=== PATIENT | female | born 1970 | race Caucasian/White ===

== ENCOUNTER 2020-02-07 05:25 | Day surgery (SDC) | payer BC, SELFPAY ==
[2020-02-07] VITALS (7 sets, daily range): BP systolic 109–133; BP diastolic 64–82; PULSE 7–77; RESP 18; TEMP 36.6–37; O2SAT 96–100; BMI 50.0
[2020-02-07 05:48] LABS: Internal QC Validated? YES +Cl - CLEAR BKGD; Pregnancy, Urine Negative Negative
[2020-02-07] MEDS: Lactated Ringers 1,000 ML 100 ML IV (06:10)
[2020-02-07] MEDS: Vancomycin IV 1,000 MG/200 ML BAG 200 MG IV (06:12)
--- NOTE | 2020-02-07 07:30 | RAD_ITS ---
STUDY: X-RAY - PELVIS REASON FOR EXAM: Female, 49 years old. inter stim therapy 1 TECHNIQUE: One view of the pelvis was obtained. COMPARISON: None. FINDINGS: There is a non-specific bowel gas pattern. InterStim electrode is seen in the posterior superior aspect of the left hemipelvis. IUD is seen. Normal bilateral iliac wings, sacroiliac joints and visualized sacrum. Normal visualized bilateral superior and inferior pubic rami. Normal pubic symphysis. Normal ischial tuberosities. Normal visualized right femoral head. Normal right acetabulum. Normal right hip joint. Normal visualized left femoral head. Normal left acetabulum. Normal left hip joint. RAD/Pelvis 1 or 2 Views IMPRESSION: Fluoroscopic services provided for InterStim electrode placement with the tip in the superior posterior aspect of the left hemipelvis. Electronically Signed: Michael Franco, at 10:04 EDT , Service support ,
--- NOTE | 2020-02-07 08:50 | PCM.OPRPT ---
Problem List (1) Urinary urgency Status: Acute (2) Urinary incontinence, urge Status: Acute (3) Urinary frequency Status: Acute Report of Operation Date of Procedure: 02/07/20 Pre-Operative Diagnosis: Refractory urinary urgency, frequency and urge incontinence Post-Operative Diagnosis: Same Surgery/Procedure Performed:: InterStim stage I Type of Anesthesia:: Local MAC Specimen's removed: None Estimated Blood Loss (mL): 5 cc Description of Procedure: The patient is a 49-year-old female with a longstanding history of urinary urgency, frequency and urge incontinence refractory to conservative management and medications. She underwent urodynamics and office cystoscopy and now presents for InterStim stage I after informed consent was obtained including discussion of the risks of COVID-19. She was taken to the operating room and placed in a prone position on the operating room table. She was secured to the bed. Esthesia monitored the head, neck, airway, IV access and vital signs throughout the case. Once anesthesia was appropriate ministered the patient was prepped and draped in usual sterile fashion. A C arm was used to outline the patient's anatomy including the S3 foramen specifically on her left side because she sleeps on her right side. The overlying skin and tissue was infiltrated with lidocaine for pain control. The InterStim 5 cm needle was then placed through the S3 foramen as visualized on both AP and lateral view with the C arm. This was then stimulated with good ted response and toe flexion. The guidewire was then passed through the needle and an incision in the skin was made surrounding the guidewire. The dilator was then placed over the wire and appropriately positioned by visualization on the C arm. The lead preloaded with the curve facing her left lateral side was then inserted to an appropriate level is monitored with the C arm. The dilating device was then pulled back leaving the lead exposed for stimulation. All 4 leads received response from the patient lead 0 and 1 with great toe flexion and leads II and III with great ted response. The tines were then released and an area was selected for placement of the pocket. This area was infiltrated and an incision was made. The area was cauterized for hemostatic control. The lead was then tunneled into this site. A site for the lead extension was then selected in a cephalad position from the pocket site. A small incision was made over the tunneling device and the lead extension was tunneled into the pocket site. The lead was dried and inserted into the lead extension and secured using the torque wrench. The incision was closed with 3-0 interrupted Vicryl suture followed by 4-0 subcuticular and then Dermabond. The same was performed on the incision over the lead. At this time the battery was attached to the lead extension and was secured with Tegaderm followed by tape. The patient was awakened and taken to the recovery room in good condition. There were no complications during this procedure. Grafts/Implants Used: [employer] [place] [employer] InterStim lead and lead extension - Complications None - Admit VTE Documentation VTE Present on Admission: No VTE Mechan Device Prophylaxis: None VTE Pharm Prophylaxis ordered?: No Reason prophylaxis not ordered:: Treatment Not Indicated
--- NOTE | 2020-02-07 08:59 | DCINST_ITS ---
Discharge Diet: No Restrictions Discharge Activity: May not drive while taking narcotic pain medications., May Not Shower, - - sponge bath as instructed avoid lifting, bending and pulling as much as possible May resume sexual activity in: 3 weeks Call your doctor if your incision/area has: Continuous Slow Oozing, Sudden Increased Bleeding, Increased Pain/ Swelling, Increased Redness, Foul Smelling Discharge, Swelling at the incision site Call your doctor if you observe: Fever of 101 or Higher, Inability to urinate, Inability to have a bowel movement, Uncontrolled pain Suture Line Care: Avoid Pulling/Pushing Cleanse incision/area with: Keep Dressing Clean & Dry Allergies/Adverse Reactions: Allergies amoxicillin [Amoxicillin] Allergy (Verified 02/07/20 05:59) Rash Medications to take at Discharge Citalopram Hydrobromide [Citalopram HBr] 20 mg PO DAILY 12/14/13 Sertraline HCl 100 mg PO DAILY 01/10/14 Lisinopril [Prinivil] 10 mg PO DAILY 01/30/20 Omeprazole 40 mg PO DAILY 01/30/20 Simvastatin 20 mg PO DAILY 01/30/20 Oxycodone HCl/Acetaminophen [Percocet 5/325] 2 tablet PO Q8H PRN PRN 7 Days #20 tablet 02/07/20 Smz/Tmp Ds [Bactrim Ds] 1 tab PO BID 3 Days #6 tab 02/07/20 The following prescriptions were given: Smz/Tmp Ds [Bactrim Ds] 1 tab PO BID 3 Days #6 tab Transmission Status: Pending to [facility] Oxycodone HCl/Acetaminophen [Percocet 5/325] 2 tablet PO Q8H PRN PRN 7 Days #20 tablet PRN Reason: Pain Transmission Status: Sent to [facility] Primary Care Physician: Tiesha Ring NP-C [Primary Care Provider] - Test Results: Test results from this visit will be discussed in further detail at your follow- up appointment, if applicable. Please Follow Up With: Elaine Cooper MD When: as scheduled Proposed Discharge Date: 02/07/20
== END 2020-02-07 10:25 | disposition home or self-care (01) ==
LOC: SDC 05:28 → AC 05:40
PROVIDERS: Anesthesiology; PCP Nurse Practitioner Family; Referring Provider Urology; Visit Provider Urology
PROC: (CPT 64581; principal; 2020-02-07 07:20)
DX: N39.41 Urge incontinence (principal); N32.81 Overactive bladder; R35.0 Frequency of micturition; R35.1 Nocturia; Z11.59 Encounter for screening for other viral diseases; I10 Essential (primary) hypertension; K21.9 Gastro-esophageal reflux disease without esophagitis; F32.9 Major depressive disorder, single episode, unspecified; F41.9 Anxiety disorder, unspecified; Z79.899 Other long term (current) drug therapy; Z86.718 Personal history of other venous thrombosis and embolism; Z86.711 Personal history of pulmonary embolism
CPT/HCPCS: 00630; 64581; 64590; 72170; 76000; 81025; 87635; 94799; C1778; J7120; U0003

== ENCOUNTER 2020-02-21 06:15 | Day surgery (SDC) | payer BC, SELFPAY ==
[2020-02-07 06:01] VITALS: BMI 50.0
[2020-02-21] VITALS (8 sets, daily range): BP systolic 88–141; BP diastolic 48–84; PULSE 67–77; RESP 16–18; TEMP 36.5–37.2; O2SAT 92–98; BMI 49.8
[2020-02-21 06:36] LABS: Internal QC Validated? YES +Cl - CLEAR BKGD; Pregnancy, Urine Negative Negative
[2020-02-21] MEDS: Lactated Ringers 1,000 ML 100 ML IV (07:05)
[2020-02-21] MEDS: Vancomycin IV 1,000 MG/200 ML BAG 200 MG IV (07:15)
--- NOTE | 2020-02-21 08:30 | DCINST_ITS ---
Discharge Diet: No Restrictions Discharge Activity: Return to Normal Activity, May not drive while taking narcotic pain medications., May Shower Call your doctor if your incision/area has: Continuous Slow Oozing, Sudden Increased Bleeding, Increased Pain/ Swelling, Increased Redness, Foul Smelling Discharge, Swelling at the incision site Call your doctor if you observe: Fever of 101 or Higher, Inability to urinate, Inability to have a bowel movement, Uncontrolled pain Allergies/Adverse Reactions: Allergies amoxicillin [Amoxicillin] Allergy (Verified 02/08/20 13:34) Rash Medications to take at Discharge Citalopram Hydrobromide [Citalopram HBr] 20 mg PO DAILY 12/14/13 Sertraline HCl 100 mg PO DAILY 01/10/14 Lisinopril [Prinivil] 10 mg PO DAILY 01/30/20 Omeprazole 40 mg PO DAILY 01/30/20 Simvastatin 20 mg PO DAILY 01/30/20 Oxycodone HCl/Acetaminophen [Percocet 5/325] 2 tablet PO Q8H PRN PRN 7 Days #20 tablet 02/21/20 Smz/Tmp Ds [Bactrim Ds] 1 tab PO BID 3 Days #6 tab 02/21/20 The following prescriptions were given: Smz/Tmp Ds [Bactrim Ds] 1 tab PO BID 3 Days #6 tab Transmission Status: Pending to [facility] Oxycodone HCl/Acetaminophen [Percocet 5/325] 2 tablet PO Q8H PRN PRN 7 Days #20 tablet PRN Reason: Pain Transmission Status: Sent to [facility] Primary Care Physician: Tiesha Ring NP-C [Primary Care Provider] - Test Results: Test results from this visit will be discussed in further detail at your follow- up appointment, if applicable. Please Follow Up With: Elaine Cooper MD When: call office for appt to be seen in 3-4 weeks Proposed Discharge Date: 02/21/20
--- NOTE | 2020-02-21 08:32 | PCM.OPRPT ---
Problem List (1) Urinary urgency Status: Acute (2) Urinary incontinence, urge Status: Acute (3) Urinary frequency Status: Acute Report of Operation Date of Procedure: 02/21/20 Pre-Operative Diagnosis: refractory urgency and frequency, urge incontinence Post-Operative Diagnosis: same Surgery/Procedure Performed:: Interstim Stage 2 Type of Anesthesia:: MAC Specimen's removed: none Estimated Blood Loss (mL): 5cc Description of Procedure: The patient is a 49-year-old female here for insertion of her InterStim IPG if she has successfully passed stage I trial. Informed consent was obtained including discussion of the COVID-19 virus and complications possible. Patient was taken to the operating room and placed in the prone position on the operating room table. Dependent areas of her body were appropriately padded and she was secured to the table. Anesthesia monitored the head, neck, airway, IV access and vital signs throughout the case. Once anesthesia was appropriately administered the patient was prepped and draped in usual sterile fashion. The existing pocket incision site was infiltrated with lidocaine. It was opened using a knife and care was taken to avoid injury to the lead. The lead insertion site to the extension wire was identified and the lead was removed using the torque wrench. The boot was removed with heavy scissors and the lead extension was pulled from underneath the drapes. The pocket site was enlarged using sharp and blunt dissection technique. Hemostasis was obtained. The lead was dried and inserted into the IPG and secured using the torque wrench. The IPG was then placed into the pocket site in appropriate position and was tested for impedances. It was found to be appropriate. The incision was closed using 3-0 interrupted Vicryl followed by 4-0 Vicryl subcuticular suturing and then Dermabond. Patient was then awakened and taken to the recovery room in good condition. There were no complications during this procedure. Grafts/Implants Used: Interstim IPG - Complications none - Admit VTE Documentation VTE Present on Admission: Yes VTE Mechan Device Prophylaxis: SCD's VTE Pharm Prophylaxis ordered?: No Reason prophylaxis not ordered:: Treatment Not Indicated
[2020-02-21] MEDS: Acetaminophen 325 MG Tablet 650 MG PO (10:20)
[2020-02-21] MEDS: oxyCODONE 5 MG Tablet 10 MG PO (10:20)
== END 2020-02-21 11:06 | disposition home or self-care (01) ==
LOC: SDC 06:16 → AC 06:16
PROVIDERS: Anesthesiology; PCP Nurse Practitioner Family; Referring Provider Urology; Visit Provider Urology
PROC: (CPT 64590; principal; 2020-02-21 08:10)
DX: N39.41 Urge incontinence (principal); R35.0 Frequency of micturition; R35.1 Nocturia; Z11.59 Encounter for screening for other viral diseases; I10 Essential (primary) hypertension; E78.00 Pure hypercholesterolemia, unspecified; K21.9 Gastro-esophageal reflux disease without esophagitis; F32.9 Major depressive disorder, single episode, unspecified; F41.9 Anxiety disorder, unspecified; Z79.899 Other long term (current) drug therapy; Z86.711 Personal history of pulmonary embolism
CPT/HCPCS: 00300; 64590; 81025; 87635; 94799; J7120; C1767; J2405; U0003

== ENCOUNTER 2023-11-15 11:38 | Emergency (ER) | payer BC, SELFPAY ==
[2023-11-15 11:39] VITALS: BP 175/76; PULSE 91; RESP 16; TEMP 36.8; O2SAT 99; BMI 47.6
[2023-11-15 15:39] VITALS: BP 213/79; PULSE 99; RESP 25; O2SAT 100
--- NOTE | 2023-11-15 18:22 | NURSING ---
pt refusing to do froi and aware that cannot go back to file if leaves today and decides later.
--- NOTE | 2023-11-15 18:33 | ED.VIS.BACK ---
HPI History of Present Illness Chief Complaint: Back Informant: patient Onset/Context/Timing Onset: Days Context: Gradual Onset Quality: Sharp Location: Lumbar Current Severity: Moderate Maximum Severity: Moderate Worsened by: improves with Movement Relieved by: Nothing Associated Symptoms Associated Symptoms: Negative for Numbness, Tingling, Radiation to Right Leg, Radiation to Left Leg, Fever, Abdominal Pain, Dysuria, Unable to Ambulate, Unable to Transfer, Urinary Retention, Urinary Incontinence, Constipation or Fecal Incontinence Narrative Narrative: 53-year-old female having low back pain since last . Denies any fall injury or trauma. She does do a lot of lifting at work but says she has no specific injury at . She denies any bowel or bladder incontinence. No prior back history of back surgery. No fever. Worse with movement. No weakness or numbness in her lower extremities. Prior similar symptoms: No Recent Illness/Hospitalization: No [facility] Medical History delivery delivered Overactive bladder Hypertension Diabetes Home Medications ?Medication ?Instructions ?Recorded ?Last Taken ?Type citalopram 20 mg tablet 20 mg PO DAILY 12/14/13 02/20/20 History sertraline 100 mg tablet 100 mg PO DAILY 01/10/14 02/20/20 History lisinopril 10 mg tablet 10 mg PO DAILY bp 01/30/20 02/20/20 History omeprazole 40 mg capsule,delayed 40 mg PO DAILY gerd 01/30/20 02/20/20 History release simvastatin 20 mg tablet 20 mg PO DAILY 01/30/20 02/20/20 History metaxalone 800 mg tablet 800 mg PO TID 7 days #21 tabs 11/15/23 Unknown Rx Allergy/AdvReac Type Severity Reaction Status Date / Time amoxicillin (Amoxicillin) Allergy Rash Verified 11/15/23 11:41 Surgical History History of cholecystectomy Social History Smoking Status: Never smoker ROS ROS ED ROS Narrative Denies recent illness. Back pain. Review of Systems ROS Unobtainable: Denies due to encephalopathy Constitutional Constitutional ED: Denies chills or fever(s) Eyes Eyes: Denies blurry vision ENT ENT ED: Denies ear pain Cardiovascular Cardiovascular: Denies chest pain Respiratory/Chest Respiratory/Chest: Denies dyspnea Gastrointestinal Gastrointestinal: Denies abdominal pain, constipation, diarrhea, melena, nausea or vomiting Genitourinary Genitourinary ED: Denies dysuria or hematuria Musculoskeletal Musculoskeletal: Reports back pain; Denies arthralgias, myalgias or neck pain Integumentary Denies abscess or Abrasions Neurologic Neurologic: Denies headache(s) Psychiatric Psychiatric: Denies anxiety Endocrine Endocrinology: Denies cold intolerance or heat intolerance Hematologic/Lymphatic Hematologic/Lymphatic: Denies easy bleeding or easy bruising Allergic/Immunologic Allergic/Immunologic ED: Denies mouth swelling or tongue swelling EXAM Physical Exam Narrative Exam Narrative: Well-appearing 53-year-old female. Vital signs stable afebrile. H EENT exam unremarkable. Neck nontender. Lungs clear to auscultation bilateral. Heart regular rhythm no murmur. Chest wall nontender. Abdomen soft nontender. No peritoneal signs. No pulsatile mass. Moving all 4 extremities. Neurovascular intact. 5/5 hydrometallurgical engineer strength. Dorsi plantarflexion intact. No cauda equina. No saddle anesthesia. Normal medial thigh sensation. Negative straight leg raise bilaterally. Back exam tenderness right lower back. Lumbar consistent with myofascial spasm. No spine tenderness. No ecchymosis or bruising. No signs of trauma. No redness or warmth. Neurologic exam normal. No loss of sensation. Normal 5 out of 5 strength in both upper and lower extremities. Again no cauda equina. Const Vital Signs: 11/15/23 11:39 11/15/23 15:39 Temperature 98.3 F Temperature Source Temporal Pulse Rate 91 99 Respiratory Rate 16 25 H Blood Pressure 175/76 H 213/79 H Blood Pressure Mean 109 123 Pulse Ox 99 100 Oxygen Delivery Method Room Air Room Air Positive well nourished and well developed; Negative for cachectic, contractures or unkempt General Appearance ED: well developed and NAD; Negative for unkempt, cachectic, contractures or pallor Nutritional Appearance: Negative for cachectic HEENT Reports moist mucous membranes Negative for trauma or tenderness Eyes PERRL and EOMs intact bilaterally General Eye ED: Negative for pale conjunctiva or scleral icterus Neck no lymphadenopathy, supple and no JVD General: Negative for tenderness Thyroid: Negative for other Resp normal respiratory effort and clear to auscultation bilaterally Effort and Inspection: Negative for pain with movement Auscultation: Negative for rales, rhonchi, wheezes or diminished lung sounds Cardio regular rate, regular rhythm, S1 normal heart sound, S2 normal heart sound and no murmurs Palpation: Negative for palpable S3 Rate: Negative for bradycardia or tachycardic Rhythm: Negative for abnormal rhythm Bruits: Negative for other GI normal to inspection, nondistended, normoactive bowel sounds, soft to palpation, non-tender, non-distended and no masses Inspection: Negative for abdominal distention Palpation: Negative for tender, guarding or rebound tenderness present Back/Spine no thoracic nor lumbar tenderness; Negative for normal to inspection Back/Spine Narrative: Right paralumbar soft tissue tenderness consistent with myofascial strain and spasm. No redness. No warmth. No bruising. Spine nontender. General Back: Negative for CVA tenderness Cervical Spine: Negative for cervical spine tenderness Extremity normal to inspection and no clubbing, cyanosis or edema General Extremety ED: Negative for edema or tenderness General Extremity: Negative for edema Neuro oriented x3 and no sensory deficits noted Sensorium / Orientation: alert; Negative for confused, lethargic or stuporous Motor Exam: strength 5/5 throughout Psych mental status grossly normal Appearance: Negative for unkempt Attitude: No agitated Mood & Affect: Negative for depressed, sad or tearful Skin no rashes or lesions noted and no wounds General Skin Exam: Negative for jaundice or pallor Lesions: No lesion noted Rashes: No rashes noted Trauma: Negative for abrasion or puncture Wounds: Negative for wounds noted MDM MDM MDM Narrative Medical decision making narrative: 53-year-old female with back strain and spasm. Treated with Skelaxin 800 and ibuprofen. Written for prescription for Skelaxin 3 times daily. Motrin for pain and inflammation. Hot shower warm bath. She had no trauma. She needs no imaging. Her lower extremities are neurovascularly intact. She did not want to make this Worker's Comp. She did not have a specific injury at work. Discharge Plan Triage Chief Complaint: Back ED Provider: Supa Rico Dx/Rx/DC Orders Clinical Impression: Back strain, Back muscle spasm Instructions: ED Back Spasm, No Trauma, ED Back Sprain/Strain Prescriptions: New metaxalone 800 mg tablet 800 mg PO TID 7 Days Qty: 21 0RF No Action citalopram 20 MG tablet 20 mg PO DAILY Patient Comments: DEPRESSION sertraline 100 MG tablet 100 mg PO DAILY Patient Comments: omeprazole 40 MG capsule,delayed release(DR/EC) 40 mg PO DAILY simvastatin 20 MG tablet 20 mg PO DAILY lisinopril 10 MG tablet 10 mg PO DAILY Primary Care Provider: Tiesha Ring NP Referrals: Tiesha Ring NP, [facility] [Primary Care Provider] - 1 Week if not improving Activity Restrictions/Additional Instructions: Hot shower, warm bath and massage to help relax muscles in your back. Also hot tub. Motrin for pain and swelling. Tylenol for pain. The muscle relaxant Skelaxin 1 pill 3 times a day for 1 week. It will take several days to start making you feel better. Off work tomorrow. Print Language: [place] Disposition Disposition: Home, Self Care
[2023-11-15] MEDS: Metaxalone 800 MG Tablet PO (18:48)
[2023-11-15] MEDS: Ibuprofen 400 MG Tablet 800 MG PO (18:48)
[2023-11-15 18:55] VITALS: BP 168/79; PULSE 98; RESP 16; TEMP 36.9; O2SAT 97
== END 2023-11-15 18:57 | disposition home or self-care (01) ==
LOC: ED 18:54
PROVIDERS: Emergency Provider Emergency Medicine; PCP Nurse Practitioner Family; Visit Provider Emergency Medicine
DX: S39.012A Strain of muscle, fascia and tendon of lower back, initial encounter (principal); E11.9 Type 2 diabetes mellitus without complications; M62.830 Muscle spasm of back; I10 Essential (primary) hypertension; X50.0XXA Overexertion from strenuous movement or load, initial encounter; Y99.0 Civilian activity done for income or pay
CPT/HCPCS: 99283

== ENCOUNTER → 2023-11-23 | Outpatient (CLI) | payer OTHER, SELFPAY ==
--- NOTE | 2023-11-23 14:45 | RAD_ITS ---
STUDY: X-RAY - THORACIC SPINE REASON FOR EXAM: Female, 53 years old. Mid back pain TECHNIQUE: 2 view(s) of the thoracic spine were obtained. COMPARISON: None. FINDINGS: Normal kyphosis of the thoracic spine. There is no substantial scoliosis. There is multilevel endplate spondylosis of the thoracic vertebrae.. There is multilevel disc space narrowing of the thoracic spine. The soft tissue structures are unremarkable. RAD/Thoracic Spine 3 Views IMPRESSION: Degenerative changes, no acute findings Electronically Signed: Js Wiseman MD at 15:02 EDT ,
--- NOTE | 2023-11-23 14:45 | RAD_ITS ---
STUDY: X-RAY - LUMBAR SPINE REASON FOR EXAM: Female, 53 years old. pain TECHNIQUE: 3 view(s) of the lumbar spine were obtained. COMPARISON: None FINDINGS: Normal lumbar lordosis. There is a dextroscoliosis of the lumbar spine. There is a normal alignment of the vertebrae in the lateral view. Normal vertebral bodies and endplates. There is multi-level degenerative disc disease with multi-level disc space narrowing. There is no demonstrated fracture. The soft tissue structures are unremarkable. RAD/Lumbar Spine 2 or 3 Views IMPRESSION: Multilevel degenerative changes with a dextroscoliosis. No demonstrated fracture or suspicious osseous lesion Electronically Signed: Js Wiseman MD at 15:03 EDT ,
== END | disposition home or self-care (01) ==
LOC: MTRAD 14:45
PROVIDERS: PCP Nurse Practitioner Family; Referring Provider Physician Assistant; Visit Provider Physician Assistant
DX: R52 Pain, unspecified (principal)
CPT/HCPCS: 72072; 72100

== ENCOUNTER → 2024-01-12 | Outpatient (CLI) | payer OTHER, SELFPAY ==
--- NOTE | 2024-01-12 13:25 | CT_ITS ---
STUDY: CT LUMBAR SPINE WITHOUT CONTRAST REASON FOR EXAM: Female, 53 years old. lbp w/ R thigh parestheisas -- bladder stimulator therefore not MRI eligible RADIATION DOSAGE (If Supplied By Facility): CTDIvol = ( 33.23 ) mGy, DLP = ( 1297.72 ) mGycm TECHNIQUE: The patient was scanned in a multi detector CT scanner. High resolution transaxial imaging was performed. Images were obtained from T12 to S1. Sagittal and coronal images were reconstructed. Individualized dose optimization techniques were used for this CT. COMPARISON: X-ray thoracic spine 11/23/2023 FINDINGS: Normal lumbar lordosis. Mild dextroscoliosis centered at L2. 6 lumbar type vertebral bodies. Normal vertebrae of the lumbar spine. L1-2: Mild bilateral disc osteophyte complex produces mild spinal stenosis. No neural foraminal stenosis. L2-3: Moderate broad disc osteophyte complex asymmetric to the left produces moderate spinal stenosis and moderate left neural foraminal stenosis. No right neural foraminal stenosis. L3-4: Mild bilateral facet hypertrophy and ligament flavum hypertrophy. No disc protrusion, spinal stenosis, or neural foraminal stenosis. L4-5: Mild bilateral facet hypertrophy and ligament flavum hypertrophy. Mild broad disc protrusion asymmetric left produces a mild spinal stenosis and mild left neural foraminal stenosis. L5-L6: Mild right facet hypertrophy and moderate left facet hypertrophy. Mild broad disc protrusion produces mild spinal stenosis and mild bilateral neural foraminal stenosis. L6-S1: Moderate bilateral facet hypertrophy. No disc protrusion, spinal stenosis, or neural foraminal stenosis. Normal visualized paraspinous soft tissue structures. Sacral stimulator. CT/Spine Lumbar without Contrast IMPRESSION: 1. 6 lumbar type vertebral bodies. 2. Mild dextroscoliosis and degenerative disc disease as described above. Electronically Signed: Preston Castro MD at 10:52 EDT ,
== END | disposition home or self-care (01) ==
PROVIDERS: PCP Nurse Practitioner Family; Referring Provider Physician Assistant; Visit Provider Physician Assistant
DX: S39.012A Strain of muscle, fascia and tendon of lower back, initial encounter (principal); M54.16 Radiculopathy, lumbar region; X58.XXXA Exposure to other specified factors, initial encounter
CPT/HCPCS: 72131

== ENCOUNTER → 2024-02-25 | Outpatient (CLI) | payer OTHER, SELFPAY ==
--- NOTE | 2024-02-25 12:17 | MRI_ITS ---
EXAM: MR LUMBAR SPINE WITHOUT INTRAVENOUS CONTRAST CLINICAL INDICATION: pain -- [facility] approved-valid until 03/16/24 TECHNIQUE: Multiplanar and multisequence MR images of the lumbar spine without intravenous contrast. COMPARISON: CT lumbar spine, 01/12/2024 and lumbar spine radiographs, 02/16/2024. FINDINGS: VERTEBRAE: For the purposes of this examination, hypoplastic ribs at T12 and 5 nonrib-bearing lumbar vertebrae are otherwise identified. No suspicious marrow space signal abnormality is identified. There is a hemangioma within the L4 vertebra. There are multiple Schmorl''s nodes. There is a hemangioma in the T12 vertebra. Vertebral body heights are preserved. Normal alignment. No spondylolisthesis. There is preservation of the normal lumbar lordosis. SPINAL CORD AND CONUS: No significant abnormality. Normal position and signal intensity of the conus medullaris. No obvious nerve root impingement. SOFT TISSUES: No significant abnormality. DISCS/SPINAL CANAL/NEURAL FORAMINA: T11-T12: Disc herniation superimposed upon a disc bulge only seen on sagittal views with at least mild spinal canal stenosis. T12-L1: Disc bulge and moderate bilateral facet arthrosis. Mild spinal canal stenosis and bilateral neural foraminal narrowing. L1-L2: Disc bulge and superimposed right central disc herniation. Mild to moderate spinal canal stenosis and bilateral neural foraminal narrowing. L2-L3: Moderate bilateral facet arthrosis. No disc herniation, spinal canal stenosis, or neural foraminal narrowing. L3-L4: Disc bulge and small central disc herniation. Moderate bilateral facet arthrosis. Mild spinal canal stenosis and bilateral neural foraminal narrowing. L4-L5: Disc bulge with superimposed right central disc herniation and severe bilateral facet arthrosis. Mild to moderate bilateral neural foraminal narrowing and mild spinal canal stenosis. L5-S1: Moderate to severe bilateral facet arthrosis. Disc bulge with small right central to subarticular disc herniation. Mild spinal canal stenosis and mild right greater than left neural foraminal narrowing. MRI/Spine Lumbar (Routine) IMPRESSION: Multilevel degenerative changes in the lumbar spine resulting in [id number] multilevel spinal canal and neural foraminal stenosis. Degenerative changes also visualized in the lower thoracic spine. No definite nerve root impingement. Electronically Signed: Chacho Batres DO at 21:48 EDT ,
== END | disposition home or self-care (01) ==
LOC: MRI 11:46
PROVIDERS: PCP Nurse Practitioner Family; Referring Provider Orthopaedic Surgery Orthopaedic Surgery of the Spine; Visit Provider Orthopaedic Surgery Orthopaedic Surgery of the Spine
DX: S39.012A Strain of muscle, fascia and tendon of lower back, initial encounter (principal); M41.56 Other secondary scoliosis, lumbar region; M54.16 Radiculopathy, lumbar region; X58.XXXA Exposure to other specified factors, initial encounter
CPT/HCPCS: 72148

== ENCOUNTER → 2025-02-12 | Outpatient (CLI) | payer BC, SELFPAY ==
--- NOTE | 2025-02-12 16:44 | MRI_ITS ---
PROCEDURE: SPINE LUMBAR (ROUTINE) 02/12/2025 REASON FOR EXAM: PAIN, RADICULOPATHY, CHANGING SYMPTOMS TECHNIQUE: SPINE LUMBAR (ROUTINE) COMPARISON: December 27, 2024, February 25, 2024, February 16, 2024 FINDINGS: Vertebrae: Partial sacralization of L5. The most inferior lumbar type vertebral body will be considered L5. The images are labeled. Vertebral body height is preserved. No fracture. Alignment: Normal lumbar lordosis. Curvature lumbar spine to the right. No spondylolisthesis. Conus Medullaris: Terminates at L1/2. Signal is normal. L1-2: Disc desiccation. Moderate, diffuse bulge. Mild thickening of ligamentum flavum. Mild facet hypertrophy. No central stenosis or exit foraminal narrowing. L2-3: Disc desiccation. Mild, diffuse disc bulge. Hhax-we-ignggtxx thickening of ligamentum flavum. Moderate facet hypertrophy. No central stenosis or exit foraminal narrowing. L3-4: Disc desiccation. Mild, diffuse disc bulge. Pcsi-dt-[id number] thickening of ligamentum flavum. Moderate facet hypertrophy. No central stenosis or exit foraminal narrowing. L4-5: Large bridging osteophyte left laterally at L4/5 best seen on plain film. Disc desiccation. Mild, diffuse disc bulge. Yyfy-so-lumkcdqb thickening of ligamentum flavum. Mild right facet hypertrophy. Moderate facet hypertrophy on the left. No central stenosis. There is possibly contact of the hypertrophic facet with the posterior superior margin of the exiting L4 nerve root on the left. Correlate with left radiculopathy. L5-S1: Disc desiccation. Transitional lumbosacral junction. Minimal facet hypertrophy. 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 Reading Location: [id number]
--- OUTSIDE RECORDS SUMMARY | 2025-02-12 21:21 | XMS RPT_ITS | CCD ---
Author Organization [facility] Care Team Providers Care Mobile Equipment Servicer Name Role Phone JENNIE SIMPSON Unavailable Unavailable JENNIE SIMPSON Unavailable Unavailable DOC, MISC Unavailable Unavailable Cathi Ringa K Primary Care Provider [phone] Jhonathan Elisa K Primary Care Provider Jhonathan, Elisa K Primary Care Provider Jhonathan CONSTRUCTION PERSON, Elisa K Primary Care Provider Jhonathan CONSTRUCTION PERSON, Elisa K Primary Care Provider MANNY LYN Referring Unavailable JHONATHAN, ELISA K Primary Care Unavailable Jhonathan TALENT ACQUISITION OPERATIONS MANAGER-C, Elisa Primary Care Provider [phone] Jhonathan TALENT ACQUISITION OPERATIONS MANAGER-C, Elisa Referring Provider Marci Alanis Attending Provider [phone] Aiden K[place]STON, Dr. Beavers Attending Provider TOMER ACEVEDO DO Admitting Unavailable TOMER ACEVEDO DO Primary Care Unavailable TOMER ACEVEDO DO Attending Unavailable JHONATHAN, ELISA Consulting Unavailable JHONATHAN, ELISA Referring Unavailable PROVIDER, UNKNOWN Consulting Unavailable JHONATHAN, ELISA Primary Care Unavailable JHONATHAN, ELISA Consulting Unavailable JHONATHAN, ELISA Attending Unavailable JHONATHAN, ELISA Admitting Unavailable PROVIDER, UNKNOWN Consulting Unavailable JHONATHAN, ELISA Admitting Unavailable JHONATHAN, ELISA Primary Care Unavailable JHONATHAN, ELISA Consulting Unavailable JHONATHAN, ELISA Attending Unavailable PROVIDER, UNKNOWN Consulting Unavailable MIRELA REED DO Admitting Unavailable MIRELA REED DO Primary Care Unavailable MIRELA REED DO Attending Unavailable JHONATHAN, ELISA Consulting Unavailable JHONATHAN, ELISA Referring Unavailable PROVIDER, UNKNOWN Consulting Unavailable Marci Jenkins Attending Unavailable Marci Jenkins Referring Unavailable Jhonathan TALENT ACQUISITION OPERATIONS MANAGER, Elisa Primary Care Unavailable Marci Jenkins Attending Unavailable Jhonathan TALENT ACQUISITION OPERATIONS MANAGER, Elisa Referring Unavailable Jhonathan TALENT ACQUISITION OPERATIONS MANAGER, Elisa Primary Care Unavailable Nimesh Wolfe Attending Unavailable Jhonathan TALENT ACQUISITION OPERATIONS MANAGER, Elisa Primary Care Unavailable Jhonathan TALENT ACQUISITION OPERATIONS MANAGER, Elisa Primary Care Unavailable Jhonathan TALENT ACQUISITION OPERATIONS MANAGER, Elisa Referring Unavailable Nathanael Marrufo Attending Unavailable Nimesh Wolfe Attending Unavailable Jhonathan TALENT ACQUISITION OPERATIONS MANAGER, Elisa Primary Care Unavailable Jhonathan TALENT ACQUISITION OPERATIONS MANAGER, Elisa Referring Unavailable Jhonathan TALENT ACQUISITION OPERATIONS MANAGER, Elisa Primary Care Unavailable Nathanael Marrufo Attending Unavailable Ck Jj Attending Unavailable Jhonathan TALENT ACQUISITION OPERATIONS MANAGER, Elisa Referring Unavailable Jhonathan TALENT ACQUISITION OPERATIONS MANAGER, Elisa Primary Care Unavailable Ck Jj Attending Unavailable Jhonathan TALENT ACQUISITION OPERATIONS MANAGER, Elisa Referring Unavailable Jhonathan TALENT ACQUISITION OPERATIONS MANAGER, Elisa Primary Care Unavailable Yaron, Nathanael Referring Unavailable Jhonathan TALENT ACQUISITION OPERATIONS MANAGER, Elisa Primary Care Unavailable Nathanael Marrufo Attending Unavailable Allergies Allergy Classification Reported Allergen(s) Allergy Type Date of Onset Reaction(s) Facility (13 sources) Amoxicillin; Translations: [AMOXICILLIN] Drug Allergy 06-08-2005 [facility] Work Phone: (11 sources) Cephalexin; Translations: [CEPHALEXIN] Drug Allergy 09-24-2013 [facility] (1 source) Amoxicillin Drug Allergy [facility] (1 source) Ciprofloxacin Drug Allergy [facility] (1 source) Penicillin Drug Allergy [facility] (1 source) Amoxicillin Drug Allergy 12-27-2024 [facility] Medications Current Medications Medication Drug Class(es) Dates Sig (Normalized) Sig (Original) aspirin 81 mg delayed release oral tablet (2 sources) Platelet Aggregation Inhibitor, Nonsteroidal Anti-inflammatory Drug Start: 02-16-2024 take 1 tablet by mouth once daily Aspirin (Adult Aspirin Regimen) 81 mg tablet,delayed release (DR/EC) Active 81 mg PO DAILY February 16, 2024 12:00am clonazePAM 0.5 mg oral tablet (10 sources) Benzodiazepine take 1 tablet by mouth every twelve hours as needed clonazePAM (KLONOPIN) 0.5 mg tablet Take 0.5 mg by mouth twice daily as needed. Active Comment on above: Take 0.5 mg by mouth twice daily as needed. cyclobenzaprine hydrochloride 10 mg oral tablet (6 sources) Muscle Relaxant Start: 12-27-2024 take 1 tablet by mouth three times daily as needed for muscle spasms Cyclobenzaprine 10 mg tablet Active 10 mg PO THREE TIMES A DAY as needed for muscle spasm December 27, 2024 12:00am Start: 11-30-2023 End: 02-16-2024 take 1 tablet by mouth once daily as needed Cyclobenzaprine 10 mg tablet Discontinued 10 mg PO THREE TIMES A DAY as needed for muscle spasm December 20, 2023 4:04pm February 16, 2024 9:23am take only AFTER work hours as needed on work days End: 01-08-2022 take 1 tablet by mouth every eight hours as needed cyclobenzaprine (FLEXERIL) 5 mg tablet Take 5 mg by mouth three times daily as needed. 0 01/08/2022 Discontinued Comment on above: Take 5 mg by mouth t hree times daily as needed. levonorgestrel 0.576949 mg/hr intrauterine system (12 sources) Progestin, Progestin-containing Intrauterine Device Start: 03-24-20 End: 01-09-20 levonorgestrel (MIRENA) 20 mcg/24 hours (7 yrs) 52 mg IUD Indications: Encounter for IUD insertion 1 Each by INTRAUTERINE route as directed. 1 Each 05/27/2020 Active Comment on above: 1 Each by INTRAUTERI NE route as directed. 1 Each by INTRAUTERI NE route continuous. lisinopril 10 mg oral tablet (12 sources) Angiotensin Converting Enzyme Inhibitor Start: 01-30-20 take 1 tablet by mouth once daily Lisinopril 10 MG tablet Active 10 mg PO DAILY January 30, 2020 12:00am take 1 tablet by mouth once chin y lisinopril 20 mg tablet Take 20 mg by mouth once daily. Active Comment on above: Take 20 mg by mouth once daily. perflutren lipid microspheres 1.3 mL in NaCl (PF) 0.9% 10 mL injection (DEFINITY) (6 sources) Start: 04-14-2021 End: 07-14-2022 perflutren lipid microspheres 1.3 mL in NaCl (PF) 0.9% 10 mL injection (DEFINITY) 125 ml sodium chloride 9 mg/ml prefilled syringe (6 sources) Start: 04-14-2021 End: 07-14-2022 sodium chloride 0.9 % (flush) 10 mL (BD POSIFLUSH) Completed/Discontinued Medications Medication Drug Class(es) Dates Sig (Normalized) Sig (Original) acetaminophen 325 mg / oxyCODONE hydrochloride 5 mg oral tablet (2 sources) Opioid Agonist Start: 02-21-2020 End: 02-28-2020 Oxycodone-Acetami nophen 1 TABLET tablet Discontinued 2 {tbl} PO EVERY 8 HOURS NEEDED as needed for Pain 20 01February 21, 2020 February 27, 2020 12:00am February 28, 2020 12:02am busPIRone hydrochloride 30 mg oral tablet (1 source) End: 01-08-2022 take 1 tablet by mouth twice daily busPIRone HCl 30 mg tablet Take 30 mg by mouth twice daily. 0 01/08/2022 Discontinued Comment on above: Take 30 mg by mouth twice daily. Calcium Carbonate / vitamin D3 (1 source) End: 01-08-2022 CALCIUM CARBONATE/VITAMIN D3 (VITAMIN D-3 ORAL) Take by mouth. 0 01/08/2022 Discontinued Comment on above: Take by mouth. citalopram 20 mg oral tablet (2 sources) Serotonin Reuptake Inhibitor Start: 12-14-2013 End: 11-23-2023 take 1 tablet by mouth once daily Citalopram 20 MG tablet Discontinued 20 mg PO DAILY December 14, 2013 12:00am November 23, 2023 2:56pm metaxalone 800 mg oral tablet (2 sources) Start: 11-15-2023 End: 11-23-2023 take 1 tablet by mouth three times daily Metaxalone 800 mg tablet Discontinued 800 mg PO THREE TIMES A DAY 21 01November 15, 2023 12:00am November 23, 2023 2:56pm 24 hr metFORMIN hydrochloride 500 mg extended release oral tablet (2 sources) Biguanide Start: 11-23-2023 End: 02-16-2024 take 1 tablet by mouth once daily Metformin 500 mg tablet extended release 24 hr Discontinued 500 mg PO daily November 23, 2023 12:00am February 16, 2024 9:24am omeprazole 40 mg delayed release oral capsule (2 sources) Proton Pump Inhibitor Start: 01-30-2020 End: 11-23-2023 take 1 capsule by mouth once daily Omeprazole 40 MG capsule,delayed release(DR/EC) Discontinued 40 mg PO DAILY January 30, 2020 12:00am November 23, 2023 2:56pm 24 hr oxybutynin chloride 10 mg extended release oral tablet (2 sources) Cholinergic Muscarinic Antagonist Start: 11-23-2023 End: 02-16-2024 take 1 tablet by mouth once daily Oxybutynin Chloride 10 mg tablet extended release 24hr Discontinued 10 mg PO daily November 23, 2023 12:00am February 16, 2024 9:24am predniSONE 10 mg oral tablet (2 sources) Start: 11-23-2023 End: 12-20-2023 take 4 tablets by mouth once daily, then take 3 tablets by mouth once daily, then take 2 tablets by mouth once daily, then take 1 tablet by mouth once daily Prednisone 10 mg tablet Discontinued 10 mg PO DAILY November 23, 2023 12:00am December 20, 2023 3:50pm 4 tablets daily x3 days, then 3 tablets daily x3 days, then 2 tablets daily x3 days, then 1 tablet daily x3 days sertraline 100 mg oral tablet (12 sources) Serotonin Reuptake Inhibitor Start: 01-10-2014 End: 11-23-2023 take 1 tablet by mouth once daily Sertraline 100 MG tablet Discontinued 100 mg PO DAILY January 10, 2014 12:00am November 23, 2023 2:56pm Comment on above: Take 100 mg by mouth once daily. simvastatin 20 mg oral tablet (3 sources) HMG-CoA Reductase Inhibitor Start: 01-30-2020 End: 11-23-2023 take 1 tablet by mouth once daily Simvastatin 20 MG tablet Discontinued 20 mg PO DAILY January 30, 2020 12:00am November 23, 2023 2:56pm Comment on above: Take 20 mg by mouth daily at bedtime. sulfamethoxazole 800 mg / trimethoprim 160 mg oral tablet (4 sources) Dihydrofolate Reductase Inhibitor Antibacterial, Sulfonamide Antimicrobial Start: 02-21-2020 End: 02-24-2020 Sulfamethoxazole- Trimethoprim 1 TABLET tablet Discontinued 1 {tbl} PO TWICE A DAY 6 3 February 21, 2020 12:00am February 23, 2020 12:00am February 24, 2020 12:02am Start: 02-07-2020 End: 02-10-2020 Sulfamethoxazole-Trimethopri m 1 TABLET tablet Discontinued 1 {tbl} PO TWICE A DAY 6 3 February 07, 2020 12:00am February 09, 2020 12:00am February 10, 2020 12:03am 24 hr venlafaxine 37.5 mg extended release oral capsule (1 source) Serotonin and Norepinephrine Reuptake Inhibitor Start: 03-19-2020 End: 01-08-2022 take 1 capsule by mouth once daily venlafaxine ER (EFFEXOR XR) 37.5 mg 24 hr capsule Take 37.5 mg by mouth once daily. 0 03/19/2020 01/08/2022 Discontinued Comment on above: Take 37.5 mg by mout h once daily. Problems Active Problems Problem Classification Problem Date Documented Date Episodic/Chronic Contraceptive and procreative management (5 sources) Patient encounter status; Translations: [Encounter for insertion of intrauterine contraceptive device] Episodic Disorders of lipid metabolism (1 source) Hyperlipidemia, unspecified; Translations: [Hyperlipidemia, unspecified] Onset: 02-06-2025 Chronic Esophageal disorders (2 sources) Gastroesophageal reflux disease; Translations: [Gastro-esophageal reflux disease without esophagitis] 12-15-2013 Chronic Essential hypertension (1 source) Essential (primary) hypertension; Translations: [Essential (primary) hypertension] Onset: 07-13-2024 Chronic Fluid and electrolyte disorders (2 sources) Hypokalemia; Translations: [Hypokalemia] 12-15-2013 Episodic Genitourinary symptoms and ill-defined conditions (2 sources) Urge incontinence of urine; Translations: [Urge incontinence] 02-07-2020 Chronic Genitourinary symptoms and ill-defined conditions (4 sources) Increased frequency of urination; Translations: [Frequency of micturition] 02-07-2020 Episodic Menstrual disorders (10 sources) Irregular periods; Translations: [Irregular menstruation, unspecified] Onset: 09-24-2013 09-24-2013 Chronic Mood disorders (10 sources) Depressive disorder; Translations: [Other specified depressive episodes] Onset: 07-12-2005 07-12-2005 Chronic Nutritional deficiencies (1 source) Vitamin D deficiency, unspecified; Translations: [Vitamin D deficiency, unspecified] Onset: 02-06-2025 Chronic Other acquired deformities (2 sources) Scoliosis of lumbar spine; Translations: [Scoliosis, unspecified] 02-16-2024 Chronic Other acquired deformities (2 sources) Leg length inequality; Translations: [Unequal limb length (acquired), unspecified site] 02-16-2024 Episodic Other nutritional; endocrine; and metabolic disorders (2 sources) Body mass index 40+ - severely obese; Translations: [Morbid (severe) obesity due to excess calories] 12-15-2013 Chronic Other screening for suspected conditions (not mental disorders or infectious disease) (3 sources) Mammography abnormal; Translations: [Other abnormal and inconclusive findings on diagnostic imaging of breast] Onset: 11-07-2024 Episodic Spondylosis; intervertebral disc disorders; other back problems (8 sources) Lumbar radiculopathy; Translations: [Radiculopathy, lumbar region] Onset: 12-27-2024 11-23-2023 Episodic Unclassified (1 source) Patient encounter status 10-24-2024 Unclassified (1 source) Obesity, class 3; Translations: [Obesity, class 3] Onset: 07-13-2024 Unclassified (1 source) Low back pain, unspecified; Translations: [Low back pain, unspecified] Onset: 02-16-2024 Past or Other Problems Problem Classification Problem Date Documented Da te Episodic/Chronic Cancer of cervix (10 sources) Carcinoma in situ of uterine cervix; Translations: [Carcinoma in situ of cervix, unspecified] Onset: 12-27-2007 12-27-2007 Episodic Diabetes mellitus without complication (1 source) Prediabetes; Translations: [Prediabetes] Onset: 07-13-2024 Episodic Other non-traumatic joint disorders (10 sources) Impingement syndrome of ankle; Translations: [Other specified joint disorders, right ankle and foot] Onset: 03-27-2014 03-27-2014 Episodic Other and delivery including normal (3 sources) Normal ; Translations: [Encounter for supervision of other normal , unspecified trimester] Onset: 01-19-2007 Resolved: 09-29-2007 10-30-2024 Episodic Phlebitis; thrombophlebitis and thromboembolism (10 sources) Deep venous thrombosis of lower extremity; Translations: [Acute embolism and thrombosis of unspecified deep veins of unspecified lower extremity] Onset: 12-29-2013 12-29-2013 Episodic Pulmonary heart disease (12 sources) Pulmonary embolism; Translations: [Other pulmonary embolism without acute cor pulmonale] Onset: 12-29-2013 12-29-2013 Episodic Sprains and strains (7 sources) Low back strain; Translations: [Strain of muscle, fascia and tendon of lower back, initial encounter] Onset: 03-13-2024 11-23-2023 Episodic Results Test Name Value Interpretation Reference Range Facil ity L/S Spine Min 4 Viewson 12-03 L/S Spine Min 4 Views [facility] Imaging Services [address] [place], [place] [address] L/S Spine Min 4 Views MR#: [id number] Acct: [id number] Name: LA STACK IVONE Rep #: [id number] : 1970 F 54 From: Osiel Soria MD PCP: APOLINAR Lane Status: DEP AMB Study: L/S Spine Min 4 Views Date of Exam: 12/27/24 Exam# [id number] Ordering Dr: Marci Jenkins EXAM: XR Cervical Spine Flexion/Extension Only, 2 or 3 Views CLINICAL INDICATION: ONGOING BACK PAIN, MORE PAIN ON LEFT SIDE TECHNIQUE: Lateral flexion/extension views of the cervical spine. COMPARISON: XR Cervical Spine Flexion Extension dated 02/16/2024 FINDINGS: VERTEBRAE: Mild dextroconvex curvature of the lumbar spine, sending around L3. Mild multilevel endplate degenerative changes of L1-S1. Moderate facet arthropathy of L3-S1. No acute fracture. Normal alignment. No instability. DISC SPACES: No acute findings. No significant narrowing. SOFT TISSUES: Unremarkable. RAD/L/S Spine Min 4 Views IMPRESSION: 1. Degenerative changes as above. 2. If symptoms persist, further evaluation with MRI is recommended. 3. No significant change from the prior exam. Reading Location: [facility] CC: APOLINAR Ring; ATIF Schwarz Framing Specialist: Signed Normal [facility] Orthopedic Visit Reporton Orthopedic Visit Report [facility] [address] [place] [address] [address] [place], [place] [address] OFFICE VISIT Date of Service: 12/27/24 MR#: [id number] Acct: [id number] Name: LA STACK IVONE Rep #: [id number] : 1970 Provider: ATIF Schwarz Age/Sex: 54/F Location: [facility] [place] Status: Signed Intake Vital Signs 03/26/24 16:23 12/27/24 10:06 Height 5 ft 6 in 5 ft 6 in Weight: 302 lb 8 oz 300 lb BMI 48.8 48.4 BP 124/78 H Position Sitting Pulse 101 H Temp 99.5 F H Temp Source Temporal Pulse Oximetry (%) 99 Oxygen Delivery Method room air Intake Visit Reasons: LUMBAR SPINE Chief Complaint: Lumbar spine pain Accompanied by: Daughter Is patient in pain?: Yes Pain scale (1-10): 4 Allergies amoxicillin (Amoxicillin) Allergy (Verified 12/27/24 10:08) Rash Medications ???Medication ???Instructions ???Recorded ???Confirmed ???Type lisinopril 10 mg tablet 10 mg PO DAILY bp 01/30/20 5 History aspirin 81 mg tablet,delayed 81 mg PO DAILY 02/16/24 12/27/24 H istory release (Adult Aspirin Regimen) cyclobenzaprine 10 mg tablet 10 mg PO TID PRN muscle spasm #30 12/27/24 12/27/24 Rx tabs Have you fallen in the past year?: No PFSH Medical History Lumbar radiculopathy Lumbar strain Thoracic myofascial strain delivery delivered Overactive bladder Hypertension Diabetes Surgical History History of cholecystectomy Social History Smoking Status: Never smoker HPI LUMBAR SPINE Details: This documentation accurately reflects the service provided and the decisions made by me, ATIF Schwarz 12/27/24 1006. Part of today???s visit was documented by Nini Bailon MA, acting as scribe. LA STACK is a 54 year old F here today for lumbar spine. Patient states that she is having lower back pain. Her recent flare of pain started after she was lifting items from a truck at work. The pain is more towards the middle and goes to the left side of the lower back. The lower back pain starts out as a burning pain, then starts stabbing. She states that the pain is going down the left leg on the side. Patient denies any numbness or tingling in the feet or toes. She states that she went to [facility] 2 weeks ago because the lower back pain was so bad. They did a Cat scan of her lower back. Patient did get a back injection from her PCP Dr. Walker Ring. She states that it helped a little bit. Patient denies any recent physical therapy. She states that her balance is okay. Pain made it where she couldn't walk. Pain goes down lateral left leg and stop at the knee. She has been doing some of the stretches and exercises a couple times per week with the HEP. Takes Aleve and Tylenol. No cane or walker. No injections, no prior back surgeries. Sitting to standing increases her pain. Walking increases the burning sensation in the legs. No surgeries. No diabetes, no heart or lung issues, no blood thinners. Takes a vitamin D supplement. Patient reports that this is a workers comp related issue. The patient did see Dr. Marrufo last year for back pain related to Worker's Comp. however that case has been closed. This seems to be a new issue as the injury happened 2 to 3 weeks ago and her symptoms are different than they were last year. She was not having any of the left sided radicular pain back when she last saw Dr. Marquez that she is currently having. Ortho Exam General General: Yes no acute distress Neurologic: Yes alert and Yes oriented x3 Spine SPINE TESTING CERVICAL THORACIC LUMBAR Musculoskeletal Strength 0=absent - 5=normal Details: Neurological exam of the lower extremities shows 5x5 power. Normal sensations across all dermatomes. No hyperreflexia. There is midline and right sided paraspinal tenderness. Coding Level of Care Code Off vis,est,level 3 Diagnoses Lumbar radiculopathy M54.16 Other secondary scoliosis, lumbar region M41.56 Scoliosis type: other secondary scoliosis Assessment and Plan Assessment and Plan (1) Lumbar radiculopathy: Status: Acute (2) Lumbar scoliosis: Status: Acute Qualifiers: Scoliosis type: other secondary scoliosis Qualified Code(s): M41.56 - Other secondary scoliosis, lumbar region Orders: Orders L/S Spine Min 4 Views Today M54.9 - Dorsalgia, unspecified Spine Lumbar (Routine) Today M41.56 - Other secondary scoliosis, lumbar region, M54.16 - Radiculopathy, lumbar region Referrals Pain Management M54.16 - Radiculopathy, lumbar region Medications: New cyclobenzaprine 10 mg PO TID PRN 30 tabs 0RF muscle spasm Plan Obtained and review (more content not included)... Normal [facility] ED MED ADMINISTRATION DETAIL on 11-25-2024 ED MED ADMINISTRATION DETAIL Marker Machine Medication Administration Record [place] [id number] [facility] [place] [address] [id number] 11/24/2024 Patient: LA STACK Sex: Female : 1970 Age: 54y MEASUREMENTS: Wt: 136.1 kg, Ht/Enrique: 66.0 in, BMI: 48.42 ALLERGIES: Amoxicillin Medication Ordered Medication Administration Date/Time IV NS 0.9 % 1000 02:11/24 IV NS 0.9 % 1000 mL started in bag#1 1000 mL at Started mL at 999 mL/hr 999 mL/hr via Site# 1. Allergies verified and confirmed 5 rights. Via 02:11/24/2024 (NOW x1) IV pump. IV patency established. IV site checked: no pain, redness, Elisa Warren R.N. or swelling. IV flushed thoroughly pre-medication administration. Stopped Information reviewed with patient. - 02:04 Elisa Warren R.N. 04:11/24/2024 Jody Mark R.N. 04:11/24 Medication Discontinued: bag #1 completed. Total Scanned amount infused: 1000 mL. - 04:54 Jody Mark R.N. HYDROmorphone 02:11/24 HYDROmorphone (Dilaudid) IVP 0.5 mg given via Given (Dilaudid) IVP 0.5 Site# 1. Allergies verified and confirmed 5 rights. IV patency 02:11/24/2024 mg (NOW x1, HIGH established. IV site checked: no pain, redness, or swelling. IV Elisa Warren R.N. ALERT flushed thoroughly pre-medication administration. IVP given by Scanned MEDICATION) nurse. Information reviewed with patient. Medication Wastage: 0.5 mg wasted. - 02:10 Elisa Warren R.N. Ondansetron IVP 4 02:11/24 Ondansetron IVP 4 mg given via Site# 1. Allergies Given mg (NOW x1) verified and confirmed 5 rights. IV patency established. IV site 02:11/24/2024 checked: no pain, redness, or swelling. IV flushed thoroughly Elisa Warren R.N. pre-medication administration. IVP given by nurse. Information Scanned reviewed with patient. - 02:09 Elisa Warren R.N. 1 of 1 Normal [facility] ED NURSES CLINICAL NOTEon ED NURSES CLINICAL NOTE Nurse Narrative Nurse Clinical Narrative [facility] [address] [facility] [address] [id number] 11/24/2024 00:55:00 Patient: LA STACK Sex: Female : 1970 Age: 54y Disposition: Discharge to Home Disposition Decision Time: 04:42 11/24/2024 Departure Time: 04:54 11/24/2024 TRIAGE Arrived by private vehicle. Historian: (patient). Accompanied by family. Primary physician (Natashais). Triage time: 01:05 11/24/2024. Acuity: LEVEL 3. Chief Complaint: (increased pain to left lower back area radiating to left leg.). Onset. (1300). ( Pt noticed onset when she got off work). SEPSIS SCREEN: NEGATIVE. SIRS criteria negative. SEVERE SEPSIS SCREEN NEGATIVE. No signs of organ dysfunction present. -- 01:15 11/24/24 EDT Elisa Warren R.N. 01:06 11/24/24. BP: 140/56 MAP: 77 mmHg. HR: 76 bpm. -- 01:15 11/24/24 EDT Elisa Warren R.N. 01:09 11/24/24. HR: 76 bpm. O2 saturation: 98%. -- 01:11/24/24 EDT Elisa Warren R.N. 01:14 11/24/24. Pain level now 10/10. -- 01:11/24/24 EDT Elisa Warren R.N. 01:17 11/24/24. RR: 16. Regular and unlabored. -- 01:26 11/24/24 EDT Elisa Warren R.N. 01:11/24/24. Temperature: 97.8 F (oral). -- 01:11/24/24 EDT Elisa Warren R.N. Acuity: LEVEL 3. 01:11/24/24. -- 01:11/24/24 EDT Elisa Warren R.N. Measurements: 01:11/24/24 Wt: 136.1 kg, Ht/Enrique: 66.0 in, BMI: 48.42 -- 01:11/24/24 EDT Elisa Warren R.N. 1 of 4 Nurse Narrative Medications: no known home medications -- 01:11/24/24 EDT Elisa Warren R.N. 01:11/24/24. Preferred Pharmacy: ([facility]). -- 01:11/24/24 EDT Elisa Warren R.N. Allergies: Amoxicillin -- 01:11/24/24 EDT Elisa Warren R.N. Problems: overactive bladder -- 01:11/24/24 EDT Elisa Warren R.N. Hypertension -- 01:11/24/24 EDT Elisa Warren R.N. Anxiety disorder -- 01:11/24/24 EDT Elisa Warren R.N. Depression -- 01:11/24/24 EDT Elisa Warren R.N. Pulmonary Embolism -- 01:11/24/24 EDT Elisa Warren R.N. Surgeries: bladder implant -- 01:11/24/24 EDT Elisa Warren R.N. Cholecystectomy -- 01:11/24/24 EDT Elisa Warren R.N. -- 01:11/24/24 EDT Elisa Warren R.N. History 01:11/24/24. PAST MEDICAL HX: Denies current : Pt has an IUD inplace. SOCIAL HX: Never smoker. Occasional alcohol use. No drug use. The patient has not traveled outside the [place] Infectious disease exposure: No infectious disease exposure. The patient was not exposed to C-diff, influenza or Coronavirus. ABUSE ASSESSMENT: The patient answered yes to the question(s) Do you feel safe in your home? and no to the question(s) Are you afraid to go home?. SELF HARM ASSESSMENT: Self harm assessment was performed. The patient answered no to the 2 of 4 Nurse Narrative question(s) Have you recently felt down, depressed, or hopeless? and Do you have thoughts of harming or killing yourself?. FALL RISK ASSESSMENT: Fall risk assessment completed. No risk factors identified. -- 01:11/24/24 EDT Elisa Warren R.N. Assessment 01:11/24/24. The patient states feels the same. -- 01:11/24/24 EDT Elisa Warren R.N. Interventions 01:11/24/24. Identification band and allergy band on patient. Advanced care plan discussed with patient. Patient does not have advanced directive. -- 01:11/24/24 EDT Elisa Warren R.N. PHYSICAL ASSESSMENT 01:11/24/24. BP: 140/56 MAP: 77 mmHg. HR: 76 bpm. -- 01:11/24/24 EDT Elisa Warren R.N. 01:11/24/24. HR: 76 bpm. O2 saturation: 98%. -- 01:11/24/24 EDT Elisa Warren R.N. 01:11/24/24. Pain level now 10/10. -- 01:11/24/24 EDT Elisa Warren R.N. 01:11/24/24. RR: 16. Regular and unlabored. -- 01:11/24/24 EDT Elisa Warren R.N. 01:11/24/24. Ambulatory to room. ( Pt c/o pain to left lower back area and moves extremely slow with ambulation. Gait steady.). GENERAL / NEURO / PSYCH: Alert. Oriented X 4. RESPIRATORY: Respirations not labored. GI / : Abdomen soft and nontender. SKIN: Skin is warm and dry. -- 01:11/24/24 EDT Elisa Warren R.N. NURSING PROGRESS NOTES 01:11/24/24. Patient gowned. Head of bed elevated. Side rails up x 1. Bed placed in lowest position. Brakes of bed on. Family at bedside. At the patient's bedside (01:21 11/24/2024). -- 01:22 11/24/24 EDT Elisa Warren R.N. 01:48 11/24/24. Patient gowned. Head of bed elevated. Side rails up x 1. Bed placed in lowest position. Brakes of bed on. At the patient's bedside (01:32 11/24/2024). -- 01:48 11/24/24 EDT Elisa Warren R.N. 02:01 11/24/24. IV NS 0.9 % 1000 mL started in bag#1 1000 mL at 999 mL/hr via Site# 1. Allergies verified and confirmed 5 rights. Via IV pump. IV patency established. IV site checked: no pain, redness, or swelling. IV flushed thoroughly pre-medication ad (more content not included)... Normal [facility] ED ORDER SHEET (CPOE ONLY)on 11-25-2024 ED ORDER SHEET (CPOE ONLY) Order Sheet Order Sheet [address] [place] [address] [id number] 11/24/2024 Patient: LA STACK Sex: Female : 1970 Age: 54y MEASUREMENTS: Wt: 136.1 kg, Ht/Enrique: 66.0 in, BMI: 48.42 ALLERGIES: Amoxicillin MEDICATION/IV/DRIP/FL UID ORDERS Order Description Priority Entered Acknowledged Completed IV NS 0.9 %1000 mL at 999 01:42 11/24/2024 01:46 02:04 mL/hr (NOW x1) Tomer Acevedo D.O. 11/24/2024 11/24/2024 Elisa Valladares R.N. R.N. HYDROmorphone (Dilaudid) 01:42 11/24/2024 01:46 02:10 IVP0.5 mg (NOW x1, HIGH Nikki PabloO. 11/24/2024 11/24/2024 ALERT MEDICATION) Elisa Elisa Warren R.N. R.N. Ondansetron IVP4 mg (NOW x1) 01:42 11/24/2024 01:46 02:09 Tomer Acevedo D.O. 11/24/2024 11/24/2024 Elisa Valladares R.N. RAriel LAB ORDERS Order Description Priority Entered Acknowledged Collected Completed CBC w Diff Stat Stat 01:42 11/24/2024 01:46 11/24/2024 01:47 11/24/2024 Ashley Pablo Debra Schrock, 1 of 2 Order Sheet Anders.Jeffery R.N. CMP Stat Stat 01:42 11/24/2024 01:46 11/24/2024 01:47 11/24/2024 Ashley Pablo Debra Schrock, R.N. RAriel Urinalysis Stat Stat 01:42 11/24/2024 01:46 11/24/2024 01:47 11/24/2024 Ashley Pablo Debra Schrock, R.N. R.Jeffery DIAGNOSTIC STUDY ORDERS Order Description Priority Entered Acknowledged Completed CT KUB (Kidney stone) Stat Stat 01:42 11/24/2024 01:46 01:47 Tomer Acevedo D.O. 11/24/2024 11/24/2024 Elisa Valladares, AdamarisNReza R.NReza Reason for Study: Flank Pain STAFF ORDERS Order Description Priority Entered Acknowledged Collected Completed Vital Signs every 30 01:42 11/24/2024 01:46 11/24/2024 01:47 11/24/2024 minutes Ashley Pablo Debra Schrock, R.N. R.Jeffery Mounter Smoking Pipe 01:42 11/24/2024 01:46 11/24/2024 01:47 11/24/2024 Ashley Pablo Debra Schrock, R.N. RAriel Oxygen titrate to 92% 01:42 11/24/2024 01:46 11/24/2024 01:47 11/24/2024 Ashley Pablo, Elisa Warren R.N. R.N. [Electronically signed by Tomer Acevedo D.O. (11/24/2024 08:05 EDT)] 2 of 2 Normal [facility] ED PHYSICIAN CLINICAL REPORT on 11-25-2024 ED PHYSICIAN CLINICAL REPORT Narrative Physician Clinical Narrative [facility] [address] [place] [address] [phone] 11/24/2024 00:55:00 Patient: LA STACK Sex: Female : 1970 Age: 54y Disposition: Discharge to Home Disposition Decision Time: 04:42 11/24/2024 Departure Time: 04:54 11/24/2024 Measurements Wt: 136.1 kg, Ht/Enrique: 66.0 in, BMI: 48.42 Initial Vital Sign Measured Time BP MAP HR RR O2Sat ETCO2 Temp Pain GCS RTS 01:06 11/24/2024 140/56 77 76 Time Seen: 00:54 11/24/2024. Arrived- By private vehicle. Historian- patient. HISTORY OF PRESENT ILLNESS Chief Complaint: BACK PAIN. It is described as being in the area of the lower lumbar spine. Onset was last night and it is still present. No other injury. Similar symptoms previously. Patient has had similar symptoms several times. REVIEW OF SYSTEMS GI: No abdominal pain, nausea, vomiting, diarrhea or black stools. CONSTITUTIONAL: No fever or chills. PSYCHIATRIC: No depression. THROAT: No sore throat. RESPIRATORY: No cough or difficulty breathing. CVS: No chest pain. SKIN: No skin rash. NEUROLOGICAL: No headache. : No difficulty with urination, urinary frequency or hematuria. EYES: No eye discomfort. 1 of 10 Narrative PAST HISTORY See nurses notes. Anxiety disorder Depression Hypertension overactive bladder Pulmonary Embolism Surgeries: bladder implant Cholecystectomy Medications: no known home medications Allergies: Amoxicillin SOCIAL HISTORY Never smoker. Occasional alcohol use. No drug use. ADDITIONAL NOTES The nursing notes have been reviewed. PHYSICAL EXAM Appearance: Alert. Appears to be in pain. Eyes: Pupils equal, round and reactive to light. ENT: Pharynx normal. Neck: Normal inspection. Neck nontender. Painless ROM. CVS: Normal heart rate and rhythm. Heart sounds normal. Pulses normal. Respiratory: No respiratory distress. Breath sounds normal. Chest nontender. Abdomen: Normal inspection. Soft and nontender. Bowel sounds normal. No mass. 2 of 10 Narrative Back: Moderate CVA tenderness on the left. Skin: Skin warm and dry. No rash. Neuro: Oriented X 3. No motor deficit. No sensory deficit. LABS, X-RAYS, AND EKG CT Abdomen - Pelvis: Normal heart size. No pericardial effusion. No acute process seen in the liver pancreas adrenal glands and kidneys. Cholecystectomy. Mild enlarged spleen noted do measure 15.5 cm in length. No abdominal aortic aneurysm. No retroperitoneal hemorrhage. Implanted device in the left flank with prior leads to the left S3 neural forearm and multiple level degenerative disc disease throughout the lumbar spine with slight dextroconvex curvature to the lumbar spine. IUD in place in the normal position within the uterine cavity. No adnexal mass. No acute process seen in the bladder. No free fluid or free air. No abscess or hematoma. Small umbilical hernia contains only fat. No retroperitoneal hemorrhage. Very mild left colon diverticulosis. Abdomen - pelvic CT performed without contrast. Interpretation time: 04:05 11/24/2024. Laboratory Tests: CBC + DIFF Final VIOLETTE: 11/24/2024 01:55:00 EDT MsgRcvd: 11/24/2024 02:29 EDT Lab Test Result Reference Status Received Comments 11/24/2024 02:29 CBC-COMPLETE CBC + DIFF Final EDT BLOOD COUNT 11/24/2024 02:29 WBC 10.5 x 10/UL 4.5 - 10.8 Final EDT 11/24/2024 02:29 RBC 4.68 x 10/UL 4.10 - 5.30 Final EDT 11/24/2024 02:29 HEMOGLOBIN 13.7 g/dl 12.0 - 16.0 Final EDT 11/24/2024 02:29 HEMATOCRIT 39.1 % 34.0 - 46.0 Final EDT 11/24/2024 02:29 MCV 84 fl 80 - 99 Final EDT 3 of 10 Narrative Lab Test Result Reference Status Received Comments 11/24/2024 02:29 MCH 29 pg 27 - 33 Final EDT 11/24/2024 02:29 MCHC 35 X10 3 32 - 36 Final EDT 11/24/2024 02:29 RDW/CV 15.0 % 12.0 - 15.6 Final EDT 11/24/2024 02:29 PLATELET 239 x10/UL 150 - 450 Final EDT 11/24/2024 02:29 AUTOMATED MPV 7.8 fl 6.6 - 10.5 Final EDT DIFFERENTIAL 11/24/2024 02:29 NEUT % 66.3 % 46.0 - 76.0 Final EDT 11/24/2024 02:29 LYMPH % 23.7 % 20.0 - 45.0 Final EDT 11/24/2024 02:29 MONOS % 5.0 % 0.0 - 10.0 Final EDT 11/24/2024 02:29 EO % 4.5 % 0.0 - 7.0 Final EDT 11/24/2024 02:29 BASO % 0.5 % 0.0 - 2.0 Final EDT 11/24/2024 02:29 Lymph # 2.47 x10/UL 0.80 - 2.80 Final EDT 11/24/2024 02:29 Neut # 6.93 x10/UL 1.50 - 7.10 Final EDT 11/24/2024 02:29 Uintah # 0.52 x10/UL 0.20 - 1.00 Final EDT 4 of 10 Narrative Lab Test Result Reference Status Received Comments 11/24/2024 02:29 EO # 0.47 x10/UL 0.00 - 0.50 Final EDT 11/24/2024 02:29 Baso # 0.05 x10/UL 0.00 - 0.10 Final EDT 11/24/2024 02:29 MANUAL DIFF N/A New Order EDT 11/24/2024 02:29 MORPHOLOGY N/A New Order EDT C (more content not included)... Normal [facility] ED SUPER BILLon 11-25-2024 ED SUPER BILL [facility] [address] [place] [address] [phone] 11/24/2024 Patient: LA STACK Sex: Female : 1970 Age: 54y Item Facility Professional Category Description Code Code Quantity Fee Total Nurse/E/M EMERGENCY 302892 1 $0.00 $0.00 DEPARTMENT VISIT HIGH/URGENT SEVERITY (18706-61) Nurse/IV/IM/Infusions Hydration 850252 2 $0.00 $0.00 additional hour (40767) Nurse/IV/IM/Infusions IVP additional 803206 1 $0.00 $0.00 push (44245) Nurse/IV/IM/Infusions IVP initial 911811 1 $0.00 $0.00 (72994) Grand Total $0.00 Providers Tomer Acevedo D.O. Chief Complaint 1 of 2 Superbill BACK PAIN. Principal Diagnosis Acute traumatic lumbar back pain associated with muscle strain; degenerative joint disease of the lumbar spine. Lumbar radiculopathy present. No neurological deficit. ICD-10 Codes M54.16: Radiculopathy, lumbar region M54.9: Dorsalgia, unspecified S39.012A: Strain of muscle, fascia and tendon of lower back, initial encounter M47.26: Other spondylosis with radiculopathy, lumbar region 2 of 2 Normal [facility] ED VISIT SUMMARYon ED VISIT SUMMARY Visit Overview Visit Overview [address] [address] [phone] 11/24/2024 Patient: LA STACK Sex: Female : 1970 Age: 54y 11/25/2024 03:44 AM EDT ED Arrival:00:55 11/24/2024 EDT Status:not Recent Travel:no Language:eng Adv Directive:No Isolation Status: Ethnicity:N Fall Risk:no risk Infectious Disease Exposure:no Measurements:5'6 / 167.6 Self-Harm Status:risk Sepsis Screen:negative cm 300.0 lb / 136.1 kg Chief Complaint:(1300 ), (DLewis), (increased pain to left lower back area radiating to left leg. ), and (Pt noticed onset when she got off work) ALLERGIES Amoxicillin HOME MEDICATIONS None PAST MEDICAL HISTORY / PROBLEMS 1 of 3 Visit Overview Anxiety disorder Depression Hypertension overactive bladder Pulmonary Embolism See nurses notes PAST SURGICAL HISTORY bladder implant Cholecystectomy SOCIAL HISTORY Smoking status: No Alcohol use: Yes Drug use: No ED COURSE MEDICATIONS GIVEN IN EMERGENCY DEPARTMENT 02:01 11/24/24 IV NS 0.9 % 1000 mL 999 mL/hr 02:05 11/24/24 Ondansetron IVP 4 mg 02:10 11/24/24 HYDROmorphone (Dilaudid) IVP 0.5 mg IV SITE INFORMATION INTAKE OUTPUT REASSESMENT (most recent) 01:21 11/24/24. Ambulatory to room. ( Pt c/o pain to left lower back area and moves extremely slow with ambulation. Gait steady.). GENERAL / NEURO / PSYCH: Alert. Oriented X 4. RESPIRATORY: Respirations not labored. GI / : Abdomen soft and nontender. SKIN: Skin is warm and dry. VITAL SIGNS 2 of 3 Visit Overview First Vitals Last Vitals Temp 01:06 11/24/24 Temp 04:50 11/24/24 BP 01:06 11/24/24 140/56 BP 04:50 11/24/24 HR 01:06 11/24/24 76 HR 04:50 11/24/24 70 RR 01:06 11/24/24 RR 04:50 11/24/24 O2 Sat 01:06 11/24/24 O2 Sat 04:50 11/24/24 99% Pain 01:06 11/24/24 Pain 04:50 11/24/24 ETCO2 01:06 11/24/24 ETCO2 04:50 11/24/24 GCS 01:06 11/24/24 GCS 04:50 11/24/24 RTS 01:06 11/24/24 RTS 04:50 11/24/24 PROCEDURES NURSING INTERVENTIONS LABS / STUDIES LABS / STUDIES ORDERED CBC w Diff CMP CT KUB (Kidney stone) Urinalysis LABS / STUDIES PENDING IMPORT CT KUB (KIDNEY STONE PROTOCOL) CLINICAL IMPRESSION ACUTE TRAUMATIC LUMBAR BACK PAIN ASSOCIATED WITH MUSCLE STRAIN; DEGENERATIVE JOINT DISEASE OF THE LUMBAR SPINE. LUMBAR RADICULOPATHY PRESENT. NO NEUROLOGICAL DEFICIT 3 of 3 Normal [facility] ED VITALS FLOW SHEETon 11-25 ED VITALS FLOW SHEET Vitals Vital Sign Flow Sheet [facility] [address] [place] [address]. [place] [address] [phone] 11/24/2024 Patient: LA STACK Sex: Female : 1970 Age: 54y Measurements Wt: 136.1 kg, Ht/Enrique: 66.0 in, BMI: 48.42 Measured Time BP MAP HR RR O2Sat ETCO2 Temp Pain GCS RTS 04:50 11/24/2024 70 99% 04:50 11/24/2024 131/64 78 67 04:49 11/24/2024 16 97.5 F 6 04:08 11/24/2024 115/61 79 68 03:38 11/24/2024 131/59 71 65 03:19 11/24/2024 75 95% 03:14 11/24/2024 78 98% 03:09 11/24/2024 73 98% 03:08 11/24/2024 121/58 74 71 03:04 11/24/2024 75 97% 02:59 11/24/2024 72 97% 02:54 11/24/2024 74 97% 02:49 11/24/2024 72 97% 02:44 11/24/2024 66 98% 02:39 11/24/2024 68 96% 1 of 2 Vitals Measured Time BP MAP HR RR O2Sat ETCO2 Temp Pain GCS RTS 02:34 11/24/2024 65 94% 02:29 11/24/2024 62 97% 02:14 11/24/2024 67 96% 02:09 11/24/2024 73 100% 02:04 11/24/2024 71 99% 01:59 11/24/2024 65 99% 01:54 11/24/2024 132/53 79 70 01:54 11/24/2024 70 100% 01:35 11/24/2024 139/75 94 75 01:25 11/24/2024 97.8 F 01:21 11/24/2024 123/62 70 72 01:17 11/24/2024 16 01:14 11/24/2024 10 01:09 11/24/2024 76 98% 01:06 11/24/2024 140/56 77 76 2 of 2 Normal [facility] CBC + DIFFon 11-24-2024 Baso # 0.05 x10EE3/UL Normal 0.00 - 0.10 [facility] Comment on above: Performed By: #### 2 [id number] #### [facility],[address] [place] [address] 89841 Basophils/100 WBC (Bld) 0.5 % Normal 0.0 - 2.0 [facility] Comment on above: Performed By: #### 2 20682 #### [facility],[address] [place] [address] CBC + DIFF Normal [facility] Comment on above: Result Comment: CBC- COMPLETE BLOOD COUNT Performed By: #### 2 18007 #### [facility],[address] [place] [address] EO # 0.47 x10EE3/UL Normal 0.00 - 0.50 [facility] Comment on above: Performed By: #### 2 76038 #### [facility],[address] [place], [place] [phone] Eosinophils/100 WBC (Bld) 4.5 % Normal 0.0 - 7.0 [facility] Comment on above: Performed By: #### 2 75598 #### [facility],[address] [place] [address] Erythrocyte distribution width (RBC) [Ratio] 15.0 % Normal 12.0 - 15.6 [facility] Comment on above: Performed By: #### 2 15886 #### [facility],[address] [place] [address] Hematocrit (Bld) [Volume fraction] 39.1 % Normal 34.0 - 46.0 [facility] Comment on above: Performed By: #### 2 31565 #### [facility],[address] [place], [place] [phone] Hemoglobin (Bld) [Mass/Vol] 13.7 g/dL Normal 12.0 - 16.0 [facility] Comment on above: Performed By: #### 2 13108 #### [facility],[address] [place] [address] 84461 Lymph # 2.47 x10EE3/UL Normal 0.80 - 2.80 [facility] Comment on above: Performed By: #### 2 79067 #### [facility],[address] [place] [address] 50343 Lymphocytes/100 WBC (Bld) 23.7 % Normal 20.0 - 45.0 [facility] Comment on above: Performed By: #### 2 13141 #### [facility],[address] [place] [address]305 MANUAL DIFF N/A Normal [facility] Comment on above: Performed By: #### 2 23070 #### [facility],[address] [place] [address] 85388 MCH (RBC) [Entitic mass] 29 pg Normal 27 - 33 [facility] Comment on above: Performed By: #### 2 26928 #### [facility],[address] [place] [address] MCHC 35 X10 3 Normal 32 - 36 [facility] Comment on above: Performed By: #### 2 35910 #### [facility],[address] [place] [address] 86582 MCV (RBC) [Entitic vol] 84 fL Normal 80 - 99 [facility] Comment on above: Performed By: #### 2 83399 #### [facility],[address] [place] [address] 15961 Uintah # 0.52 x10EE3/UL Normal 0.20 - 1.00 [facility] Comment on above: Performed By: #### 2 68782 #### [facility],[address] [place] [address] 05832 MONOS % 5.0 % Normal 0.0 - 10.0 [facility] Comment on above: Performed By: #### 2 61193 #### [facility],[address] [place] [address] 53424 Morphology Luis (Bld) [Interp] N/A Normal [facility] Comment on above: Performed By: #### 2 24138 #### [facility],[address] [place] [address] 93552 Neut # 6.93 x10EE3/UL Normal 1.50 - 7.10 [facility] Comment on above: Performed By: #### 2 82200 #### [facility],[address] [place] [address] 71532 Neutrophils/100 WBC (Bld) 66.3 % Normal 46.0 - 76.0 [facility] Comment on above: Performed By: #### 2 58731 #### [facility],[address] [place] [address] 26505 PLATELET 239 x10EE3/UL Normal 150 - 450 [facility] Comment on above: Performed By: #### 2 28871 #### [facility],[address] [place] [address] 92926 Platelet mean volume (Bld) [Entitic vol] 7.8 fL Normal 6.6 - 10.5 [facility] Comment on above: Result Comment: AUTO MATED DIFFERENTIAL Performed By: #### 2 45467 #### [facility],[address] [place] [address] 92436 RBC 4.68 x 10EE6/UL Normal 4.10 - 5.30 [facility] Comment on above: Performed By: #### 2 48470 #### [facility],[address] [place] [address] 43483 WBC 10.5 x 10EE3/UL Normal 4.5 - 10.8 [facility] Comment on above: Performed By: #### 2 86522 #### [facility],[address] [place] [address] 79398 CMP with eGFRon 11-24-2024 AGE 54 years Normal [facility] Comment on above: Performed By: #### 2 94058 #### [facility],[address] [place] [address] 62174 Albumin [Mass/Vol] 3.6 g/dL Normal 3.4 - 5.0 [facility] Comment on above: Performed By: #### 2 40152 #### [facility],[address] [place] [address] 67294 Albumin/Globulin [Mass ratio] 0.9 {ratio} Normal 0.9 - 1.6 [facility] Comment on above: Performed By: #### 2 39891 #### [facility],[address] [place] [address] 16586 ALK PHOS 89 U/L Normal 46 - 116 [facility] Comment on above: Performed By: #### 2 33177 #### [facility],[address] [place] [address] 13512 ALT [Catalytic activity/Vol] 34 U/L Normal 16 - 63 [facility] Comment on above: Performed By: #### 2 14647 #### [facility],[address] [place] [address] 88014 Anion gap [Moles/Vol] 16 mmol/L Normal 10 - 20 [facility] Comment on above: Performed By: #### 2 89251 #### [facility],[address] [place] [address] 98590 AST [Catalytic activity/Vol] 18 U/L Normal 13 - 39 [facility] Comment on above: Performed By: #### 2 70845 #### [facility],[address] [place] [address] 35401 B/C RATIO 28 ratio Normal 0 - 30 [facility] Comment on above: Performed By: #### 2 76685 #### [facility],[address] [place] [address] 47095 Bilirubin [Mass/Vol] 0.5 mg/dL Normal 0.2 - 1.0 [facility] Comment on above: Performed By: #### 2 40651 #### [facility],[address] [place] [address] 46984 Calcium [Mass/Vol] 8.7 mg/dL Normal 8.5 - 10.1 [facility] Comment on above: Performed By: #### 2 18883 #### [facility],[address] [place], [place] [phone] Chloride [Moles/Vol] 106 mmol/L Normal 98 - 107 [facility] Comment on above: Performed By: #### 2 75280 #### [facility],[address] [place], [place] [phone] CMP with eGFR Normal [facility] Comment on above: Result Comment: COMP REHENSIVE METABOLIC PANEL Performed By: #### 2 50605 #### [facility],[address] [place] [address] CO2 [Moles/Vol] 28.1 mmol/L Normal 21.0 - 32.0 [facility] Comment on above: Performed By: #### 2 32077 #### [place] [address] Creatinine [Mass/Vol] 0.93 mg/dL Normal 0.55 - 1.02 [facility] Comment on above: Performed By: #### 2 11810 #### [place] [address] GFR/1.73 sq M.predicted among non-blacks MDRD (S/P/Bld) [Vol rate/Area] mL/min/{1.73_m2} Normal 60 - 999 [facility] Comment on above: Performed By: #### 2 51457 #### [facility],[address] [place] [address] Result Comment: ACCO RDING TO THE NATIONAL KIDNEY DISEASE EDUCATION PROGRAM(NKDE), A NORMAL eGFR IS A VALUE GREATER THAN OR EQUAL TO 60 ML/MIN/1.73 SQ METERS. CHRONIC KIDNEY DISEASE: <60mL/MIN/1.73 SQ METERS KIDNEY FAILURE: <15mL/MIN/1.73 SQ METERS THIS TEST SHOULD ONLY BE USED FOR PATIENTS 18 YEARS OF AGE AND OLDER. Globulin (S) [Mass/Vol] 4.0 g/dL High 1.5 - 3.8 [facility] Comment on above: Performed By: #### 2 68133 #### [facility],[address] [place] [address] 35342 Glucose [Mass/Vol] 82 mg/dL Normal 74 - 106 [facility] Comment on above: Performed By: #### 2 73334 #### [facility],[address] [place] [address] 21150 Potassium [Moles/Vol] 3.8 mmol/L Normal 3.5 - 5.1 [facility] Comment on above: Performed By: #### 2 73661 #### [facility],[address] [place] [address] 46668 Protein [Mass/Vol] 7.6 g/dL Normal 6.4 - 8.2 [facility] Comment on above: Performed By: #### 2 23758 #### [facility],[address] [place] [address] 73067 Sodium [Moles/Vol] 146 mmol/L High 136 - 145 [facility] Comment on above: Performed By: #### 2 84737 #### [facility],[address] [place] [address] 17928 Urea nitrogen [Mass/Vol] 26 mg/dL High 7 - 18 [facility] Comment on above: Performed By: #### 2 85643 #### [facility],[address] [place] [address] KUB (KIDNEY STONE PROTOCO L)on 11-24-2024 CT KUB (KIDNEY STONE PROTOCOL) [place] [address] Patient: LA STACK Phone#: : 1970 Age: 54 Gender: F Pt. Type: ER Account: [id number] Location: [facility] Ordering: TOMER D. DIDUR Exam Date: 11/24/2024/2:21 Family Phys: ELISA RING Charge Code: 150418 Physician: Ransom Order #: [id number] Dose#: [id number] PROCEDURE: CT ABDOMEN AND PELVIS WITHOUT CONTRAST COMPARISON: None. INDICATIONS: Flank pain. TECHNIQUE: After obtaining the patient's consent, CT images of the abdomen and pelvis were created without non-ionic intravenous contrast material. All CT scans at this facility use dose modulation, iterative reconstruction, and/or weight based dosing when appropriate to reduce radiation dose to as low as reasonably achievable. IV CONTRAST: No IV contrast used,0ml TOTAL DOSE: 26.70 CTDIvol(mGy) FINDINGS: Evaluation of the solid organs and soft tissues is limited in the absence of intravenous contrast. KIDNEYS: No nephrolithiasis or hydronephrosis ADRENALS: Normal. No mass or enlargement. URINARY BLADDER: Normal. No visible focal wall thickening, lesion, or calculus. LIVER: Unremarkable in contour BILIARY: Gallbladder is absent, surgical clips in the gallbladder fossa PANCREAS: Unremarkable in contour SPLEEN: Unremarkable in contour. Spleen measures 9.5 x 5.8 x 12.4 cm. AORTA/VASCULAR: Atherosclerotic calcifications of the aorta. No aortic aneurysm. RETROPERITONEUM: Limited evaluation for adenopathy in the absence of contrast BOWEL/MESENTERY: No bowel obstruction or dilatation. There are few diverticula of the descending and sigmoid colon. No significant stool burden. ABDOMINAL WALL: Fat containing umbilical hernia PELVIC NODES: Normal. No adenopathy. PELVIC ORGANS: Uterus is present. IUD is present in the uterus. No adnexal mass. BONES: Facet arthropathy in the lower lumbar spine. Posterior disc osteophyte complexes at T11-12 and L1-2. Implanted device in the subcutaneous tissues of the left posterior back. Single lead traverses the left sacral foramen in terminates in the left pelvis. LUNG BASES: There are dependent changes. Continued Report - Page 2 of 2 Patient: LA STACK Phone#: : 1970 Age: 54 Gender: F Pt. Type: ER Account: [id number] Location: [facility] Ordering: TOMER ACEVEDO Exam Date: 11/24/2024/2:21 Family Phys: ELISA RING Charge Code: [id number] Physician: Ransom Order #: [id number] Dose#: [id number] OTHER: Negative. CONCLUSION: 1. No nephrolithiasis or hydronephrosis Dictated by: Olivia Freed MD on 11/24/2024 at 15:33 Approved by: Olivia Freed MD on 11/24/2024 at 15:40 Normal [facility] URINALYSISon 11-24-2024 Bilirubin Ql (U) Negative Normal NORMAL: NEGATIVE [facility] Comment on above: Performed By: #### 2 [id number] #### [facility],[address] [place] [address] Clarity (U) clear Normal NORMAL: CLEAR [facility] Comment on above: Performed By: #### 2 76116 #### [facility],[address] [place], [place] [phone] Color (U) p.yel Normal NORMAL: YELLOW [facility] Comment on above: Performed By: #### 2 86781 #### [facility],[address] [place], [place] [phone] Glucose Ql (U) NORM Normal NORMAL: NORMAL [facility] Comment on above: Performed By: #### 2 93703 #### [facility],[address] [place] [address] Hemoglobin Ql (U) Negative Normal NORMAL: NEGATIVE [facility] Comment on above: Performed By: #### 2 63854 #### [facility],[address] [place] [address] Ketone Negative Normal NORMAL: NEGATIVE [facility] Comment on above: Performed By: #### 2 86362 #### [facility],[address] [place] [address] Leukocytes Negative Normal NORMAL: NEGATIVE [facility] Comment on above: Performed By: #### 2 43872 #### [facility],[address] [place] [address] Nitrite Ql (U) Negative Normal NORMAL: NEGATIVE [facility] Comment on above: Performed By: #### 2 01083 #### [facility],[address] [place] [address] pH (U) 6 [pH] Normal NORMAL: 5.0-8.0 [facility] Comment on above: Performed By: #### 2 27598 #### [facility],[address] [place] [address] Protein Ql (U) Negative Normal NORMAL: NEGATIVE [facility] Comment on above: Performed By: #### 2 58316 #### [facility],[address] [place] [address] Sp [place] 1.020 Normal NORMAL: 1.010-1.030 [facility] Comment on above: Performed By: #### 2 39851 #### [facility],[address] [place] [address] Specimen Type R Normal [facility] Comment on above: Performed By: #### 2 49029 #### [facility],[address] [place], [place] [phone] Urinalysis dipstick W Reflex Microscopic panel (U) NOT INDICATED Normal [facility] Comment on above: Performed By: #### 2 65070 #### [facility],[address] [place], [place] [phone] Urobilinog NORM Normal NORMAL: NORMAL [facility] Comment on above: Performed By: #### 2 71321 #### [facility],[address] [place], [place] [phone] KEANU SCREENING W TOMOon 11-07 KEANU SCREENING W DANTE * * *Final Report* * * DATE OF EXAM: Nov 07 2024 11:08AM [facility] 0582 - KEANU SCREENING W DANTE / PROCEDURE REASON: Encounter for screening mammogram for malignant neoplasm of breast * * * * Physician Interpretation * * * * RESULT: [address] [address] [place] [address] #[id number] - KEANU SCREENING W DANTE HISTORY: 54 year-old patient seen for screening. Patient is asymptomatic in both breasts. Patient states no personal history of breast cancer. The patient has a family history of breast cancer. COMPARISON STUDIES: The present examination has been compared to prior imaging studies dated 04/04/2017 (mammogram), 05/09/2018 (mammogram), 11/06/2020 (mammogram), 04/09/2022 (mammogram) and 05/19/2022 (mammogram). MAMMOGRAM TECHNIQUE: The study was acquired using full field digital technology and interpreted from soft copy. Digital Breast Tomosynthesis (DBT) images were obtained and used to assist in the interpretation of this examination. MAMMOGRAM FINDINGS: There are scattered areas of fibroglandular density. No suspicious masses, calcifications or other abnormalities are seen in either breast. There are no significant interval changes. IMPRESSION: There is no mammographic evidence of malignancy in either breast. Routine screening mammogram is recommended. Annual mammogram will be due in 1 year. BI-RADS Category 1: Negative RISK: Based on the Tyrer-Cuzick (TC) risk assessment model, this patient has a 16.5% lifetime risk of developing breast cancer, meaning they are at average risk for developing breast cancer. However, this is only an estimate based on available history provided on the patient's questionnaire. We encourage all patients to talk with their providers about these results, further recommendations for managing breast health, and appropriate supplemental screening options if the patient has dense breast tissue. Interpreting Radiologist: Sushma Perkins M.D. Electronically signed on: 11/08/2024 Framing Specialist: CORWIN Cruzribe Date/Time: Nov 07 2024 10:56A Dictated by: SUSHMA PERKINS MD This examination was interpreted and the report reviewed and electronically signed by: SUSHMA PERKINS MD on Nov 08 2024 8:31AM EST [id number] Normal [facility] Nathalie 10-18-2024 DAREK Telephone (OBGYWM) LA STACK ([id number]) 1970 F Date Time Provider Department 10/18/24 MANNY LYN OBGYWAcosta During your visit today, we recorded the following information about you: Carmelita Ornelas 10/18/2024 11:[address] [facility] mammography order Allergies As of Date: 10/18/2024 Noted Allergy Reaction AMOXICILLIN 06/08/2005 2 - Rash CEPHALEXIN 09/24/2013 2 - Rash Date Reviewed: 03/31/2022 Reviewed by: Manny Lyn MD - Fully Assessed Reason for Visit: Orders [681] Primary Visit Diagnosis:Encounter for screening mammogram for malignant neoplasm of breast [Z12.31] Order(s):KEANU SCREENING W DANTE [[id number]] Order #: [id number] FUTURE Prescriptions as of 11/05/2024 - levonorgestrel (MIRENA) 20 mcg/24 hours (7 yrs) 52 mg IUD 1 Each by INTRAUTERINE route as directed. - clonazePAM (KLONOPIN) 0.5 mg tablet Take 0.5 mg by mouth twice daily as needed. - sertraline (ZOLOFT) 100 mg tablet Take 100 mg by mouth once daily. - lisinopril 20 mg tablet Take 20 mg by mouth once daily. 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] 03/27/2014 Encounter Status:Closed by CARMELITA ORNELAS on 11/05/24 Normal [facility] ED MED ADMINISTRATION DETAIL on 08-23-2024 ED MED ADMINISTRATION DETAIL Marker Machine Medication Administration Record [address] [address] [id number] 08/22/2024 Patient: LA STACK Sex: Female : 1970 Age: 54y MEASUREMENTS: Wt: 138.3 kg, Ht/Enrique: 66.0 in, BMI: 49.23 ALLERGIES: No known drug allergies Medication Ordered Medication Administration Date/Time 1 of 1 Normal [facility] ED NURSES CLINICAL NOTEon ED NURSES CLINICAL NOTE Nurse Narrative Nurse Clinical Narrative [address] [address] [phone] 08/22/2024 Patient: LA STACK Sex: Female : 1970 Age: 54y Primary Insurance: [employer] Policy Number: [id number] Group Number: [id number] Subscriber: Other Disposition: Discharge to Home Disposition Decision Time: 15:25 08/22/2024 Departure Time: 15:28 08/22/2024 TRIAGE Arrived by private vehicle. Historian: (patient). Accompanied by family. Triage time: 13:37 08/22/2024. Acuity: LEVEL 3. Chief Complaint: FEVER and (cotton mouth, headache). This started today. SEPSIS SCREEN: SIRS criteria negative. No possible sources of infection. -- 14:04 08/22/24 CARTER Garcia R.N. 13:38 08/22/24. BP: 127/71 MAP: 90. HR: 88. RR: 17. O2 saturation: 98% Temperature: 97.6 F. Pain level now 3/10. -- 13:52 08/22/24 CARTER Garcia R.N. 14:12 08/22/24. SEPSIS SCREEN: NEGATIVE. SIRS criteria positive. No possible sources of infection. -- 14:12 08/22/24 CARTER Garcia R.N. Measurements: 13:42 08/22/24 Wt: 138.3 kg, Ht/Enrique: 66.0 in, BMI: 49.23 -- 13:52 08/22/24 CARTER Garcia R.N. 1 of 4 Nurse Narrative Medications: simvastatin 40 mg tablet: 1 tablet once a day. -- 15:13 08/22/24 CARTER Garcia R.N. sertraline 50 mg tablet: 1 tablet once a day. -- 15:13 08/22/24 CARTER Garcia R.N. oxybutynin chloride ER 15 mg tablet,extended release 24 hr: 1 tablet once a day. -- 15:13 08/22/24 CARTER Garcia R.N. lisinopril 20 mg-hydrochlorothiazid e 25 mg tablet: 1 tablet once a day. -- 15:13 08/22/24 CARTER Garcia R.N. VITAMIN D3: TAKE 1 CAPSULE BY MOUTH ONCE DAILY -- 15:13 08/22/24 CARTER Garcia R.N. 13:37 08/22/24. Preferred Pharmacy: ([facility] [place]). -- 14:04 08/22/24 CARTER Garcia R.N. Allergies: no known drug allergies -- 13:46 08/22/24 CARTER Garcia R.N. Home Medications/Allergy Information Source: patient -- 13:46 08/22/24 CARTER Garcia R.N. Problems: Hypertension -- 13:46 08/22/24 CARTER Garcia R.N. Anxiety disorder -- 13:47 08/22/24 CARTER Garcia R.N. Depression -- 13:47 08/22/24 CARTER Garcia R.N. overactive bladder -- 13:47 08/22/24 CARTER Garcia R.N. ADDITIONAL SURGERIES: bladder implant -- 13:47 08/22/24 CARTER Garcia R.N. Cholecystectomy -- 13:47 08/22/24 CARTER Garcia R.N. -- 13:47 08/22/24 CARTER Garcia R.N. History 13:37 08/22/24. SOCIAL HX: Never smoker. Occasional alcohol use. No drug use. The patient has not traveled outside the [place] 2 of 4 Nurse Narrative Infectious disease exposure: No infectious disease exposure. ABUSE ASSESSMENT: The patient answered yes to the question(s) Do you feel safe in your home? and no to the question(s) Are you afraid to go home?. Abuse denied. No suspicion of abuse. SELF HARM ASSESSMENT: Self harm assessment was performed. The patient answered no to the question(s) Have you recently felt down, depressed, or hopeless? and Do you have thoughts of harming or killing yourself?. FALL RISK ASSESSMENT: Fall risk assessment completed. No risk factors identified. -- 14:04 08/22/24 CARTER Garcia R.N. Interventions 13:37 08/22/24. Advanced care plan discussed with patient (pt states doesn't want to have her heart restarted but denies any paperwork). -- 14:04 08/22/24 CARTER Garcia R.N. PHYSICAL ASSESSMENT 15:10 08/22/24. Ambulatory to room. (Pt c/o cotton mouth, headache, body aches and yellow phlegm x two days.). GENERAL / NEURO / PSYCH: Alert. Oriented X 4. Appears in no acute distress. RESPIRATORY: Respirations not labored. Breath sounds within normal limits. CVS: Heart sounds within normal limits. Capillary refill less than 2 seconds. GI / : Abdomen soft and nontender and normal bowel sounds. No nausea noted. No diarrhea. No emesis noted. SKIN: Skin is warm and dry. -- 15:17 08/22/24 CARTER Madrid R.N. NURSING PROGRESS NOTES 15:08/22/24. Patient identifiers checked. Call light placed in reach. Side rails up x 1. Bed placed in lowest position. Brakes of bed on. -- 15:17 08/22/24 CARTER Madrid R.N. DISPOSITION / DISCHARGE 15:08/22/24. Condition at departure: unchanged. No learning barriers present. Discharge instructions provided and reviewed with the patient. Reviewed medication(s). Treatments reviewed. Patient verbalized understanding. Written instructions provided in Portuguese. The patient was discharged home. The patient left ambulatory and via private vehicle. Patient driving. -- 15:30 08/22/24 CARTER Miller R.N. 3 of 4 Nurse Narrative Departure time: 15:28 08/22/2024. -- 15:31 08/22/24 CARTER Miller R.N. (Electronically signed by Jennifer Reich R.N. 08/23/24 12:33:51 EST) Gen (more content not included)... Normal [facility] ED ORDER SHEET (CPOE ONLY)on 08-23-2024 ED ORDER SHEET (CPOE ONLY) Order Sheet Order Sheet [address] [place] [address] [id number] 08/22/2024 Patient: LA STACK Sex: Female : 1970 Age: 54y MEASUREMENTS: Wt: 138.3 kg, Ht/Enrique: 66.0 in, BMI: 49.23 ALLERGIES: No known drug allergies MEDICATION/IV/DRIP/FL UID ORDERS Order Description Priority Entered Acknowledged Completed LAB ORDERS Order Description Priority Entered Acknowledged Collected Completed DIAGNOSTIC STUDY ORDERS Order Description Priority Entered Acknowledged Completed STAFF ORDERS Order Description Priority Entered Acknowledged Collected Completed 1 of 1 Normal [facility] ED PHYSICIAN CLINICAL REPORT on 08-23-2024 ED PHYSICIAN CLINICAL REPORT Narrative Physician Clinical Narrative [address] [address] [phone] 08/22/2024 Patient: LA STACK Sex: Female : 1970 Age: 54y Primary Insurance: [employer] Policy Number: [id number] Group Number: [id number] Subscriber: Other Measurements Wt: 138.3 kg, Ht/Enrique: 66.0 in, BMI: 49.23 Initial Vital Sign Measured Time BP MAP HR RR O2Sat ETCO2 Temp Pain GCS RTS 13:38 08/22/2024 127/71 90 88 17 98% 97.6 F 3 Time Seen: 14:58 08/22/2024. Arrived- By private vehicle. Historian- patient. HISTORY OF PRESENT ILLNESS Chief Complaint: COUGH and SORE THROAT. RUNNY NOSE nasal congestion. This started yesterday and is still present. The patient has had a cough (Mild nonproductive). No difficulty breathing or fever. The patient has had a sore throat, nasal congestion, sinus drainage, chills and muscle aches. The patient has had chest pain (right pleuritic chest pain occasionally, comes and goes for the last day) and a nasal discharge. Additional history - The patient has had contact with a sick family member. (2 - improving). REVIEW OF SYSTEMS NEUROLOGICAL: The patient has had a headache. GI: No nausea, vomiting, diarrhea or abdominal pain. CVS: No pedal edema. : No difficulty with urination. MUSCULOSKELETAL: No joint pain. SKIN: No skin rash. 1 of 4 Narrative PAST HISTORY See nurses notes. Anxiety disorder Depression Hypertension overactive bladder Surgeries: bladder implant Cholecystectomy Medications: lisinopril 20 mg-hydrochlorothiazid e 25 mg tablet: 1 tablet once a day. oxybutynin chloride ER 15 mg tablet,extended release 24 hr: 1 tablet once a day. sertraline 50 mg tablet: 1 tablet once a day. simvastatin 40 mg tablet: 1 tablet once a day. VITAMIN D3: TAKE 1 CAPSULE BY MOUTH ONCE DAILY Allergies: no known drug allergies Home Medications/Allergy Information Source: patient - Yaquelin GarciaMayte, 08/22/2024 13:46 EST SOCIAL HISTORY Never smoker. Alcohol use. No drug use. ADDITIONAL NOTES The nursing notes have been reviewed. PHYSICAL EXAM 2 of 4 Narrative Vital Signs: Have been reviewed as normal. Appearance: Alert. No acute distress. Eyes: Pupils equal, round and reactive to light. Eyes normal inspection. ENT: Ears normal. Nose normal. Pharynx normal. Uvula midline. Neck: Normal inspection. Neck supple. No meningeal signs or lymphadenopathy. CVS: Normal heart rate and rhythm. Heart sounds normal. Respiratory: No respiratory distress. Painless inspiration. Breath sounds normal. Abdomen: Soft and nontender. No organomegaly. Back: Normal inspection. Skin: Skin warm and dry. Normal skin color. No rash. Normal skin turgor. Extremities: Extremities exhibit normal ROM. No lower extremity edema. Neuro: Oriented X 3. No motor deficit. PROGRESS AND PROCEDURES MEDICAL DECISION MAKING: (patient presents with 1-2 day history of nasal congestion, mild generalized headache, sore throat, occasional cough, states she has some yellow nasal drainage occasionally. Denies fevers but has felt some chills and felt a little warm at times. Denies chest pain consistently but has some transient right lower ribcage twinges of sharp pain to come and go. These tend to be worse with coughing and palpation. Denies abdominal pain nausea vomiting. Has been able to eat and drink. Positive sick contacts times to home with similar symptoms that are improving, they were diagnosed with upper respiratory infections. Patient's vitals are stable and normal. She appears in no distress, no respiratory distress. Skin is warm and dry. Heart rate and rhythm regular, lungs clear to auscultation. She does have reproducible chest wall tenderness in the right lower anterior 0 anterior lateral and posterior ribs. This exactly reproduces her presenting pain. Abdomen is soft nontender nondistended lower extremities without edema or erythema. Patient has signs and symptoms very consistent with a viral upper respiratory infection. There is no evidence of focal infection or bacterial infection requiring antibiotics at this time. She does have a history of pulmonary embolism but her symptoms are very consistent with a URI and her pleuritic chest pain is consistent with URI and also very reproducible on palpation. In addition the chest pain comes and goes transiently. This does not present In a way that is consistent with acute pulmonary embolism so I do not feel she needs further workup for this. We will discharge the patient home with symptomatic care and instructions to follow up closely with primary care. She is comfortable with this plan. She had the opportunity ask questions and agrees with the management plan at this time.). Disposition: Condition: good and stable. Discharged in good co (more content not included)... Normal [facility] ED SUPER BILLon 08-23-2024 ED [address] [address] [place] [address] [id number] 08/22/2024 Patient: LA STACK Sex: Female : 1970 Age: 54y Item Professional Category Description Facility Code Code Quantity Fee Total Nurse/E/M EMERGENCY 463225 1 $0.00 $0.00 DEPARTMENT VISIT LOW/MODER SEVERITY (70483) Grand Total $0.00 Providers Mirela Reed D.O. Chief Complaint COUGH and SORE THROAT. RUNNY NOSE nasal congestion. Principal Diagnosis Acute viral (suspected) rhinitis.No airway obstruction. ICD-10 Codes 1 of 2 [facility] J00: Acute nasopharyngitis [common cold] J06.9: Acute upper respiratory infection, unspecified 2 of 2 Normal [facility] ED VISIT SUMMARYon ED VISIT SUMMARY Visit Overview Visit Overview [address] [address] [place] [address] [id number] 08/22/2024 Patient: LA STACK Sex: Female : 1970 Age: 54y 08/23/2024 12:33 PM EST ED Arrival:13:35 08/22/2024 EST Status: Recent Travel:no Language:eng Adv Directive: Isolation Status: Ethnicity:N Fall Risk:no risk Infectious Disease Exposure:no Measurements:5'6 / 167.6 Self-Harm Status:risk Sepsis Screen:negative cm 305.0 lb / 138.3 kg Chief Complaint:FEVER and (cotton mouth, headache) ALLERGIES No Known Drug Allergies HOME MEDICATIONS lisinopril 20 mg-hydrochlorothiazid e 25 mg tablet: 1 tablet once a day. oxybutynin chloride ER 15 mg tablet,extended release 24 hr: 1 tablet once a day. sertraline 50 mg tablet: 1 tablet once a day. simvastatin 40 mg tablet: 1 tablet once a day. VITAMIN D3: TAKE 1 CAPSULE BY MOUTH ONCE DAILY 1 3 Visit Overview PAST MEDICAL HISTORY / PROBLEMS Anxiety disorder Depression Hypertension overactive bladder See nurses notes PAST SURGICAL HISTORY bladder implant Cholecystectomy SOCIAL HISTORY Smoking status: No Alcohol use: Yes Drug use: No ED COURSE MEDICATIONS GIVEN IN EMERGENCY DEPARTMENT IV SITE INFORMATION INTAKE OUTPUT REASSESMENT (most recent) 15:10 08/22/24. Ambulatory to room. (Pt c/o cotton mouth, headache, body aches and yellow phlegm x two days.). GENERAL / NEURO / PSYCH: Alert. Oriented X 4. Appears in no acute distress. RESPIRATORY: Respirations not labored. Breath sounds within normal limits. CVS: Heart sounds within normal limits. Capillary refill less than 2 seconds. GI / : Abdomen soft and nontender and normal bowel sounds. No nausea noted. No diarrhea. No emesis noted. SKIN: Skin is warm and dry. VITAL SIGNS First Vitals Last Vitals 2 of 3 Visit Overview First Vitals Last Vitals Temp 13:38 08/22/24 97.6 F Temp 13:38 08/22/24 97.6 F BP 13:38 08/22/24 127/71 BP 13:38 08/22/24 127/71 HR 13:38 08/22/24 88 HR 13:38 08/22/24 88 RR 13:38 08/22/24 17 RR 13:38 08/22/24 17 O2 Sat 13:38 08/22/24 98% O2 Sat 13:38 08/22/24 98% Pain 13:38 08/22/24 3 Pain 13:38 08/22/24 3 ETCO2 13:38 08/22/24 ETCO2 13:38 08/22/24 GCS 13:38 08/22/24 GCS 13:38 08/22/24 RTS 13:38 08/22/24 RTS 13:38 08/22/24 PROCEDURES NURSING INTERVENTIONS LABS / STUDIES CLINICAL IMPRESSION ACUTE VIRAL (SUSPECTED) RHINITIS.NO AIRWAY OBSTRUCTION 3 of 3 Normal [facility] ED VITALS FLOW SHEETon 08-23 ED VITALS FLOW SHEET Vitals [place] [address] [id number] 08/22/2024 Patient: LA STACK Sex: Female : 1970 Age: 54y Measurements Wt: 138.3 kg, Ht/Enrique: 66.0 in, BMI: 49.23 Measured Time BP MAP HR RR O2Sat ETCO2 Temp Pain GCS RTS 13:38 08/22/2024 127/71 90 88 17 98% 97.6 F 3 1 of 1 Normal [facility] CBC + DIFFon 07-13-2024 Baso # 0.04 x10EE3/UL Normal 0.00 - 0.10 [facility] Comment on above: Performed By: #### 2 68523 ####[facility],[address] [place], [place] [address] Basophils/100 WBC (Bld) 0.4 % Normal 0.0 - 2.0 [facility] Comment on above: Performed By: #### 2 91271 ####[facility],[address] [place] [address] CBC + DIFF Normal [facility] Comment on above: Result Comment: CBC- COMPLETE BLOOD COUNT Performed By: #### 2 42821 ####[address],[place] [address] EO # 0.34 x10EE3/UL Normal 0.00 - 0.50 [facility] Comment on above: Performed By: #### 2 33704 ####[facility],[address] [place] [address] Eosinophils/100 WBC (Bld) 4.1 % Normal 0.0 - 7.0 [facility] Comment on above: Performed By: #### 2 36111 ####[facility],[address] [place] [address] Erythrocyte distribution width (RBC) [Ratio] 14.5 % Normal 12.0 - 15.6 [facility] Comment on above: Performed By: #### 2 02422 ####[facility],[address] [place] [address] Hematocrit (Bld) [Volume fraction] 39.6 % Normal 34.0 - 46.0 [facility] Comment on above: Performed By: #### 2 29726 ####[facility],[address] [place] [address] Hemoglobin (Bld) [Mass/Vol] 13.2 g/dL Normal 12.0 - 16.0 [facility] Comment on above: Performed By: #### 2 02701 ####[facility],[address] [place] [address] Lymph # 1.46 x10EE3/UL Normal 0.80 - 2.80 [facility] Comment on above: Performed By: #### 2 63673 ####[address] [address] Lymphocytes/100 WBC (Bld) 17.5 % Low 20.0 - 45.0 [facility] Comment on above: Performed By: #### 2 76403 ####[facility],[address] [place] [address] MANUAL DIFF N/A Normal [facility] Comment on above: Performed By: #### 2 54601 ####[facility],[address] [place] [address] MCH (RBC) [Entitic mass] 29 pg Normal 27 - 33 [facility] Comment on above: Performed By: #### 2 16007 ####[facility],[address] [place] [address] MCHC 33 X10 3 Normal 32 - 36 [facility] Comment on above: Performed By: #### 2 30608 ####[facility],[address] [place], [place] [id number] MCV (RBC) [Entitic vol] 87 fL Normal 80 - 99 [facility] Comment on above: Performed By: #### 2 36702 ####[facility],[address] [place] [address] [place] # 0.30 x10EE3/UL Normal 0.20 - 1.00 [facility] Comment on above: Performed By: #### 2 29775 ####[facility],[address] [place] [address] 55533 MONOS % 3.6 % Normal 0.0 - 10.0 [facility] Comment on above: Performed By: #### 2 73182 ####[facility],[address] [place] [address] Morphology Luis (Bld) [Interp] N/A Normal [facility] Comment on above: Performed By: #### 2 17100 ####[facility],[address] [place] [address] Neut # 6.23 x10EE3/UL Normal 1.50 - 7.10 [facility] Comment on above: Performed By: #### 2 89780 ####[facility],[address] [place], [place] [phone] Neutrophils/100 WBC (Bld) 74.5 % Normal 46.0 - 76.0 [facility] Comment on above: Performed By: #### 2 31745 ####[facility],[address] [place] [address] 48834 PLATELET 264 x10EE3/UL Normal 150 - 450 [facility] Comment on above: Performed By: #### 2 84916 ####[facility],[address] [place] [address] 28746 Platelet mean volume (Bld) [Entitic vol] 8.9 fL Normal 6.6 - 10.5 [facility] Comment on above: Result Comment: AUTO MATED DIFFERENTIAL Performed By: #### 2 47365 ####[facility],[address] [place] [address] 61150 RBC 4.55 x 10EE6/UL Normal 4.10 - 5.30 [facility] Comment on above: Performed By: #### 2 45694 ####[facility],[address] [place] [address] 06608 WBC 8.4 x 10EE3/UL Normal 4.5 - 10.8 [facility] Comment on above: Performed By: #### 2 91315 ####[facility],[address] [place] [address] 35241 CMP with eGFRon 07-13-2024 AGE 53 years Normal [facility] Comment on above: Performed By: #### 2 28905 #### [facility],[address] [place] [address] 62136 Albumin [Mass/Vol] 3.6 g/dL Normal 3.4 - 5.0 [facility] Comment on above: Performed By: #### 2 11425 #### [facility],[address] [place] [address] 17289 Albumin/Globulin [Mass ratio] 1.0 {ratio} Normal 0.9 - 1.6 [facility] Comment on above: Performed By: #### 2 79952 #### [facility],[address] [place] [address] 91626 ALK PHOS 91 U/L Normal 46 - 116 [facility] Comment on above: Performed By: #### 2 18237 #### [facility],[address] [place] [address] 99315 ALT [Catalytic activity/Vol] 22 U/L Normal 16 - 63 [facility] Comment on above: Performed By: #### 2 53626 #### [facility],[address] [place] [address] 92559 Anion gap [Moles/Vol] 14 mmol/L Normal 10 - 20 [facility] Comment on above: Performed By: #### 2 08453 #### [facility],[address] [place] [address] 71244 AST [Catalytic activity/Vol] 17 U/L Normal 13 - 39 [facility] Comment on above: Performed By: #### 2 27167 #### [facility],[address] [place] [address] 04815 B/C RATIO 13 ratio Normal 0 - 30 [facility] Comment on above: Performed By: #### 2 97770 #### [facility],[address] [place] [address] 94985 Bilirubin [Mass/Vol] 0.4 mg/dL Normal 0.2 - 1.0 [facility] Comment on above: Performed By: #### 2 08197 #### [facility],[address] [place] [address] 77282 Calcium [Mass/Vol] 8.7 mg/dL Normal 8.5 - 10.1 [facility] Comment on above: Performed By: #### 2 74679 #### [facility],[address] [place] [address] 75724 Chloride [Moles/Vol] 108 mmol/L High 98 - 107 [facility] Comment on above: Performed By: #### 2 70987 #### [facility],[address] [place] [address] 48567 CMP with eGFR Normal [facility] Comment on above: Result Comment: COMP REHENSIVE METABOLIC PANEL Performed By: #### 2 10109 #### [facility],[address] [place] [address] 17183 CO2 [Moles/Vol] 27.8 mmol/L Normal 21.0 - 32.0 [facility] Comment on above: Performed By: #### 2 79505 #### [facility],[address] [place] [address] 09945 Creatinine [Mass/Vol] 0.78 mg/dL Normal 0.55 - 1.02 [facility] Comment on above: Performed By: #### 2 02223 #### [facility],[address] [place] [address] 25820 GFR/1.73 sq M.predicted among non-blacks MDRD (S/P/Bld) [Vol rate/Area] mL/min/{1.73_m2} Normal 60 - 999 [facility] Comment on above: Performed By: #### 2 78307 #### [facility],[address] [place], [place] [address] Result Comment: ACCO RDING TO THE NATIONAL KIDNEY DISEASE EDUCATION PROGRAM(NKDE), A NORMAL eGFR IS A VALUE GREATER THAN OR EQUAL TO 60 ML/MIN/1.73 SQ METERS. CHRONIC KIDNEY DISEASE: <60mL/MIN/1.73 SQ METERS KIDNEY FAILURE: <15mL/MIN/1.73 SQ METERS THIS TEST SHOULD ONLY BE USED FOR PATIENTS 18 YEARS OF AGE AND OLDER. Globulin (S) [Mass/Vol] 3.7 g/dL Normal 1.5 - 3.8 [facility] Comment on above: Performed By: #### 2 70314 #### [facility],[address] [place] [address] 31916 Glucose [Mass/Vol] 112 mg/dL High 74 - 106 [facility] Comment on above: Performed By: #### 2 37113 #### [facility],[address] [place] [address] 88044 Potassium [Moles/Vol] 3.7 mmol/L Normal 3.5 - 5.1 [facility] Comment on above: Performed By: #### 2 11595 #### [facility],[address] [place], [place] [phone] Protein [Mass/Vol] 7.3 g/dL Normal 6.4 - 8.2 [facility] Comment on above: Performed By: #### 2 48290 #### [facility],[address] [place] [address] Sodium [Moles/Vol] 146 mmol/L High 136 - 145 [facility] Comment on above: Performed By: #### 2 36469 #### [place] [address] Urea nitrogen [Mass/Vol] 10 mg/dL Normal 7 - 18 [facility] Comment on above: Performed By: #### 2 82568 #### [place] [id number] HEMOGLOBIN A1C (POM)on 07-13 Glucose [Mass/Vol] 111.2 mg/dL High 0.0 - 0.0 [facility] Comment on above: Result Comment: BLDo HEMOGLOBIN A1C REFERENCE RANGESBLDo Suggested Diagnosis HbA1c(%) HbA1C (mmol/mol Diabetic >/=6.5 >/=48 Prediabetes 5.7 - 6.4 39 - 47 Normal <5.7 <39 Performed By: #### 2 57526 #### [facility],[address] [place], [place] [phone] HbA1c (Bld) [Mass fraction] 5.5 % Normal 0.0 - 6.5 [facility] Comment on above: Performed By: #### 2 18820 #### [facility],[address] [place], [place] [phone] LIPID PROFILEon 07-13-2024 Cholesterol [Mass/Vol] 243 mg/dL High 0 - 240 [facility] Comment on above: Performed By: #### 2 50212 ####[place] [address],[place] [address] Cholesterol in HDL [Mass/Vol] 47 mg/dL Normal 40 - 60 [facility] Comment on above: Performed By: #### 2 09144 ####[facility],[address] [place] [address] [place] [address] Cholesterol in LDL [Mass/Vol] 182 mg/dL High 0 - 129 [facility] Comment on above: Performed By: #### 2 19117 ####[facility],[address] [place] [address] 80237 Cholesterol.total/Ch olesterol in HDL [Mass ratio] 5.2 {ratio} High 0.0 - 5.0 [facility] Comment on above: Performed By: #### 2 75360 ####[facility],[address] [place] [address] [place] [address] Lipid 1996 panel Normal [facility] Comment on above: Result Comment: LIPI D PROFILE Performed By: #### 2 72860 ####[facility],[address] [place] [address] [place] [address] Triglyceride [Mass/Vol] 72 mg/dL Normal 0 - 150 [facility] Comment on above: Performed By: #### 2 08146 ####[facility],[address] [place] [address] [place] [address] VITAMIN D, 25 HYDROXYon 07-04 0 VitD 18.60 ng/mL Low 30.00 - 100 [facility] Comment on above: Result Comment: 25-O HD3 indicates both endogenous production and supplementation. 25-OHD2 is an indicator of exogenous sources, such as diet or supplementation. Therapy is based on measurement of Total 25-OHD, with levels <20 ng/mL indicative of Vitamin D deficiency, while levels between 20 ng/mL and 30 ng/mL suggest insufficiency. Optimal levels are >=30ng/mL. Vitamin D, 25-OH D3 Not Established Vitamin D, 25-OH D2 Not Established Performed By: #### 2 62971 #### [facility],[address] [place] [address] Urgent Care Visit Reporton 0 03-26-2024 Urgent Care Visit Report [facility] [address] [place] [id number] OFFICE VISIT Date of Service: 03/26/24 MR#: [id number] Acct: [id number] Name: LA STACK IVONE Rep #: [id number] : 1970 Provider: ATIF Callahan Age/Sex: 53/F Location: [facility] Status: Signed Intake Vital Signs 02/16/24 09:21 03/22/24 15:07 03/26/24 16:23 Height 5 ft 6 in 5 ft 6 in 5 ft 6 in Weight: 294 lb 6 oz 302 lb 8 oz BMI 47.5 48.8 BP 124/78 H Position Sitting Pulse 101 H Temp 99.5 F H Temp Source Temporal Pulse Oximetry (%) 99 Oxygen Delivery Method room air Intake Visit Reasons: 2 MONTH FU/ BK Chief Complaint: WC f/u back pain Accompanied by: Self Is patient in pain?: Yes Pain scale (1-10): 5 Allergies amoxicillin (Amoxicillin) Allergy (Verified 03/26/24 16:23) Rash Medications ???Medication ???Instructions ???Recorded ???Confirmed ???Type lisinopril 10 mg tablet 10 mg PO DAILY bp 01/30/20 03/26/24 History aspirin 81 mg tablet,delayed 81 mg PO DAILY 02/16/24 03/26/24 History release (Adult Aspirin Regimen) PFSH Medical History Lumbar radiculopathy Lumbar strain Thoracic myofascial strain delivery delivered Overactive bladder Hypertension Diabetes Surgical History History of cholecystectomy Social History Smoking Status: Never smoker HPI HPI Chief Complaint: WC f/u back pain Details: LA STACK, is a 53 F who presents to the office today for follow-up of a work-related injury which occurred on 11/10/2023. Patient recently had a CT of her lumbosacral spine which did show multiple levels of degeneration along with ligamentum flavum hypertrophy and disc protrusion at multiple levels. Ortho-spine noted she was not a surgical candidate and he submitted CP for pain mgmt referral - which was DENIED. Patient states that she has had no change in her symptoms and has not had physical therapy in quite some time. She denies numbness in LLE though still in right lateral thigh. No pelvic or abdominal pain. No other associated symptoms or alleviating/aggravati ng factors. ROS Const Constitutional: No other (As above) Exam Const General: cooperative, healthy appearing and no acute distress Orientation: alert and awake Neck Neck: normal visual inspection Chest Chest palpation inspection: normal inspection of the chest Resp Effort Inspection: normal respiratory effort and able to speak in complete sentences Cardio Rate: regular rate Pulses: radial pulses present Musc Thoracic/Lumbar Spine: pain with thoraco-lumbar ROM with forward flexion, with lateral flexion to the left, with rotation to the left and other (Pain with extension at waist exacerbates discomfort the most), paraspinal tenderness on the right in the mid thoracic, in the lower thoracic, in the upper lumbar and in the mid lumbar, no thoracic spinal tenderness, no lumbar spinal tenderness and straight leg raise positive (right only) Skin General: no rashes or lesions noted Neuro General: patient alert and patient awake Cognition: normal cognition Speech: speech normal Gait: normal gait Motor: muscle tone normal throughout Sensory Exam: no sensory deficits noted (Except right lateral thigh paresthesias to palpation) Diagnoses Lumbar radiculopathy M54.16 Lumbar strain S39.012A Thoracic myofascial strain S29.019A Assessment and Plan Assessment and Plan (1) Lumbar radiculopathy: Status: Acute (2) Lumbar strain: Status: Acute (3) Thoracic myofascial strain: Status: Acute Plan [employer] 14 filled out releasing patient back to work today without restrictions; she has reached MMI. Form C9 filled out requesting spine surgeon referral. Recommend f/u w/ private physician should symptoms persist or other concerns develop. Pt states acknowledging understanding all the above. Coding Level of Care Code Off vis,est,level 2 03/26/24 1706 Date Ck Moon Signature: Date (if applicable) CC: Normal [facility] Urgent Care Visit Reporton 0 03-21-2024 Urgent Care Visit Report [facility] [address], [address] [place] [address] OFFICE VISIT Date of Service: 03/21/24 MR#: [id number] Acct: [id number] Name: LA STACK IVONE Rep #: [id number] : 1970 Provider: ATIF Callahan Age/Sex: 53/F Location: [facility] Status: Signed Intake Vital Signs 11/23/23 14:37 Height 5 ft 6 in Intake Visit Reasons: 2 M FU/[employer] Chief Complaint: WC f/u back pain Allergies amoxicillin (Amoxicillin) Allergy (Verified 03/01/24 07:38) Rash [facility] Lumbar radiculopathy Lumbar strain Thoracic myofascial strain delivery delivered Overactive bladder Hypertension Diabetes Surgical History History of cholecystectomy Social History Smoking Status: Never smoker HPI HPI Chief Complaint: WC f/u back pain Details: LA STACK, is a 53 F who presents to the office today for NO SHOW Coding Level of Care Code No Charge 03/21/24 1538 Date Ck Moon Signature: Date (if applicable) CC: Normal [facility] Orthopedic Visit Reporton Orthopedic Visit Report [facility] [address] [place] [address] OFFICE VISIT Date of Service: 03/01/24 MR#: [id number] Acct: [id number] Name: LA STACK Rep #: [id number] : 1970 Provider: Dr. Nathanael Marrufo MD Age/Sex: 53/F Location: [facility] Status: Signed Intake Vital Signs 02/16/24 09:21 Height 5 ft 6 in Weight: 294 lb 6 oz BMI 47.5 Intake Visit Reasons: LUMBAR SPINE Chief Complaint: WC f/u back pain Accompanied by: Self Is patient in pain?: Yes Pain scale (1-10): 3 Allergies amoxicillin (Amoxicillin) Allergy (Verified 03/01/24 07:38) Rash Medications ???Medication ???Instructions ???Recorded ???Confirmed ???Type lisinopril 10 mg tablet 10 mg PO DAILY bp 01/30/20 03/01/24 History aspirin 81 mg tablet,delayed 81 mg PO DAILY 02/16/24 03/01/24 History release (Adult Aspirin Regimen) [facility] History Lumbar radiculopathy Lumbar strain Thoracic myofascial strain delivery delivered Overactive bladder Hypertension Diabetes Surgical History History of cholecystectomy Social History Smoking Status: Never smoker HPI LUMBAR SPINE Details: This documentation accurately reflects the service provided and the decisions made by me, Dr. Nathanael Marrufo MD 03/01/24 0737. Part of today???s visit was documented by Preeti PRAJAPATI , acting as scribe. LA STACK is a 53 year old F here today for MRI Review. Patient states her back is still hurting her. No change in her pain since before the MRI. Workers comp denied the injections for now, pending what the MRI says. Pain does not extend down past the knee. HPI from 02/16/24: LA STACK is a 53 year old F here today [facility] patient for low back pain. 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 She states that about 5 minutes after she started having pain and was unable to sit and thought she could just walk off the pain. She states that the pain does radiate down the right leg along with some numbness. She states that she sometimes get a burning sensation in her low back. She states that bending and lifting something heavy increases her pain. She takes Tylenol for pain as needed. She states that she did do some PT at [facility] in [place] but it seemed to make her pain worse. La has had low back pain radiating to the right lower extremity along the anterolateral thigh up to the knee. She denies any left sided pain. She has had physical therapy without much relief. She continues to be at work despite the injury. She has an overactive bladder and has an indwelling bladder stimulator. Ortho Exam General General: Yes no acute distress Neurologic: Yes alert and Yes oriented x3 Spine SPINE TESTING CERVICAL THORACIC LUMBAR Musculoskeletal Strength 0=absent - 5=normal Details: Exam of the back shows midline and right paraspinal tenderness. Neurologic evaluation of lower extremity shows 5 x 5 power normal shows normal sensations in all dermatomes were passive straight leg raise test is negative. Coding Level of Care Code Off vis,est,level 4 Diagnoses Leg length discrepancy M21.70 Other secondary scoliosis, lumbar region M41.56 Scoliosis type: other secondary scoliosis Lumbar radiculopathy M54.16 Time Spent (min) 35 Assessment and Plan Assessment and Plan (1) Leg length discrepancy: Status: Acute (2) Lumbar scoliosis: Status: Acute Qualifiers: Scoliosis type: other secondary scoliosis Qualified Code(s): M41.56 - Other secondary scoliosis, lumbar region (3) Lumbar radiculopathy: Status: Acute Plan Reviewed MRI today with the patient. Again reviewed prior xrays. Lumbar scoliosis noticed as before. Multilevel disc degeneration noticed on MRI. L4-5 shows disc degeneration with mild bilateral foraminal stenosis. L1-2 shows central disc bulge without significant stenosis. No instability on dynamic flexion-extension views. Explained to her the imaging findings in detail. At this time, patient is not a surgical candidate as there is no instability or severe stenosis. I recommend continued nonsurgical treatment. Recommend that she consult with pain management for consideration of injections. She has seen PT for 12 sessions and feels that she didn't get much benefit. Encouraged her to continue with stretches/exercises. After she trials injections, she can follow back up if no improvement on as needed basis. Patient is in agreement. 03/01/24 0808 Date Nathanael Marrufo MD 03/01/24 0834 Cosigner Signature: D (more content not included)... Normal [facility] Spine Lumbar (Routine)on Spine Lumbar (Routine) [facility] Imaging Services [address] [place], [place] [id number] Spine Lumbar (Routine) MR#: [id number] Acct: [id number] Name: LA STACK IVONE Rep #: [id number] : 1970 F 53 From: Chacho strickland DO PCP: APOLINAR Lane Status: REG CLI Study: Spine Lumbar (Routine) Date of Exam: 02/25/24 Exam# [id number] Ordering Dr: Nathanael Marrufo MD [id number] EXAM: MR LUMBAR SPINE WITHOUT INTRAVENOUS CONTRAST CLINICAL INDICATION: pain -- [facility] approved-valid until 03/16/24 TECHNIQUE: Multiplanar and multisequence MR images of the lumbar spine without intravenous contrast. COMPARISON: CT lumbar spine, 01/12/2024 and lumbar spine radiographs, 02/16/2024. FINDINGS: VERTEBRAE: For the purposes of this examination, hypoplastic ribs at T12 and 5 nonrib-bearing lumbar vertebrae are otherwise identified. No suspicious marrow space signal abnormality is identified. There is a hemangioma within the L4 vertebra. There are multiple Schmorl''s nodes. There is a hemangioma in the T12 vertebra. Vertebral body heights are preserved. Normal alignment. No spondylolisthesis. There is preservation of the normal lumbar lordosis. SPINAL CORD AND CONUS: No significant abnormality. Normal position and signal intensity of the conus medullaris. No obvious nerve root impingement. SOFT TISSUES: No significant abnormality. DISCS/SPINAL CANAL/NEURAL FORAMINA: T11-T12: Disc herniation superimposed upon a disc bulge only seen on sagittal views with at least mild spinal canal stenosis. T12-L1: Disc bulge and moderate bilateral facet arthrosis. Mild spinal canal stenosis and bilateral neural foraminal narrowing. L1-L2: Disc bulge and superimposed right central disc herniation. Mild to moderate spinal canal stenosis and bilateral neural foraminal narrowing. L2-L3: Moderate bilateral facet arthrosis. No disc herniation, spinal canal stenosis, or neural foraminal narrowing. L3-L4: Disc bulge and small central disc herniation. Moderate bilateral facet arthrosis. Mild spinal canal stenosis and bilateral neural foraminal narrowing. L4-L5: Disc bulge with superimposed right central disc herniation and severe bilateral facet arthrosis. Mild to moderate bilateral neural foraminal narrowing and mild spinal canal stenosis. L5-S1: Moderate to severe bilateral facet arthrosis. Disc bulge with small right central to subarticular disc herniation. Mild spinal canal stenosis and mild right greater than left neural foraminal narrowing. MRI/Spine Lumbar (Routine) IMPRESSION: Multilevel degenerative changes in the lumbar spine resulting in [id number] multilevel spinal canal and neural foraminal stenosis. Degenerative changes also visualized in the lower thoracic spine. No definite nerve root impingement. Electronically Signed: Chacho Batres DO at 21:48 EDT , CC: APOLINAR Ring; Dr. Nathanael Marrufo MD Framing Specialist: Signed Normal [facility] L/S Spine Bending Flex/Otis 02-16-2024 L/S Spine Bending Flex/Ext [facility] [address] [place] [address] L/S Spine Bending Flex/Ext MR#: [id number] Acct: [id number] Name: MELANYDORIANTish WISEMAN Rep #: [id number] : 1970 F 53 From: Lakhwinder Goodrich MD PCP: APOLINAR Lane Status: DEP AMB Study: L/S Spine Bending Flex/Ext Date of Exam: 02/15 Exam# [id number] Ordering Dr: Marci Jenkins [id number] STUDY: X-RAY - LUMBAR SPINE REASON FOR EXAM: Female, 53 years old. Low back pain. TECHNIQUE: Lateral flexion and extension views were obtained on 3 images. COMPARISON: November 23, 2023 FINDINGS: Lateral flexion and extension views show normal extension and limited flexion with no abnormal motion. Diffuse osteopenia with moderate lower thoracic and lumbosacral spondylosis most marked at L3-4, L4-5 and L5-S1 is stable. Vascular calcification, cholecystectomy clips and sacral stimulator, unchanged. RAD/L/S Spine Bending Flex/Ext IMPRESSION: Stable lumbar spine. Limited flexion, normal extension and no abnormal motion identified. Electronically Signed: Lakhwinder Goodrich MD at 12:14 EDT Reading Location ID and State: [address] [place] [address] , Service support , CC: APOLINAR Ring; ATIF Schwarz Framing Specialist: Signed Normal [facility] Orthopedic Visit Reporton Orthopedic Visit Report [facility] [facility] [address] [place] [address] OFFICE VISIT Date of Service: 02/16/24 MR#: [id number] Acct: [id number] Name: LA STACK Rep #: [id number] : 1970 Provider: Dr. Nathanael Marrufo MD Age/Sex: 53/F Location: [facility] Status: Signed Intake Vital Signs 11/23/23 14:37 02/16/24 09:21 Height 5 ft 6 in 5 ft 6 in Weight: 294 lb 6 oz BMI 47.5 Intake Visit Reasons: LUMBAR SPINE Accompanied by: Self Allergies amoxicillin (Amoxicillin) Allergy (Verified 02/16/24 09:22) Rash Medications ???Medication ???Instructions ???Recorded ???Confirmed ???Type lisinopril 10 mg tablet 10 mg PO DAILY bp 01/30/20 02/16/24 History aspirin 81 mg tablet,delayed 81 mg PO DAILY 02/16/24 02/16/24 History release (Adult Aspirin Regimen) [facility] Medical History Lumbar radiculopathy Lumbar strain Thoracic myofascial strain delivery delivered Overactive bladder Hypertension Diabetes Surgical History History of cholecystectomy Social History Smoking Status: Never smoker HPI LUMBAR SPINE Details: This documentation accurately reflects the service provided and the decisions made by me, Dr. Nathanael Marrufo MD 02/16/24 0918. Part of today???s visit was documented by Abimbola HUGHES, acting as scribe. LA STACK is a 53 year old F here today [facility] patient for low back pain. She states that the injury was 11/10/23, she was working in [employer] with [employer] and she twisted the wrong way. She states that about 5 minutes after she started having pain and was unable to sit and thought she could just walk off the pain. She states that the pain does radiate down the right leg along with some numbness. She states that she sometimes get a burning sensation in her low back. She states that bending and lifting something heavy increases her pain. She takes Tylenol for pain as needed. She states that she did do some PT at [facility] in [place] but it seemed to make her pain worse. La has had low back pain radiating to the right lower extremity along the anterolateral thigh up to the knee. She denies any left sided pain. She has had physical therapy without much relief. She continues to be at work despite the injury. She has an overactive bladder and has an indwelling bladder stimulator. Ortho Exam General General: Yes no acute distress Neurologic: Yes alert and Yes oriented x3 Spine SPINE TESTING CERVICAL THORACIC LUMBAR Musculoskeletal Strength 0=absent - 5=normal Details: Exam of the back shows midline and right paraspinal tenderness. Neurologic evaluation of lower extremity shows 5 x 5 power normal shows normal sensations in all dermatomes were passive straight leg raise test is negative. Coding Level of Care Code Off vis,new,level 4 Diagnoses Other secondary scoliosis, lumbar region M41.56 Scoliosis type: other secondary scoliosis Leg length discrepancy M21.70 Lumbar radiculopathy M54.16 Time Spent (min) 45 Assessment and Plan Assessment and Plan (1) Lumbar scoliosis: Status: Acute Qualifiers: Scoliosis type: other secondary scoliosis Qualified Code(s): M41.56 - Other secondary scoliosis, lumbar region (2) Leg length discrepancy: Status: Acute (3) Lumbar radiculopathy: Status: Acute Orders: Orders L/S Spine Bending Flex/Ext Today M54.50 - Low back pain, unspecified Plan I obtained flexion-extension views today in the clinic. I reviewed CT scan from January 11 as well as x-rays from November 22. These show left hemipelvis higher than the right suggestive mild limb length discrepancy. There is degenerative scoliosis with concavity to the left. Multilevel osteophytosis noticed with disc degeneration and facet arthrosis. No obvious instability on flexion-extension views. No MRI available. CT scan confirms degenerative changes but does not indicate extent of stenosis or source of radiculopathy. I explained to her the imaging findings in detail. Patient has developed lumbar radiculopathy going to the right lower extremity which started at the time of her injury at work in November. She has gone through physical therapy without significant help. At this point is reasonable to obtain MRI of the lumbar spine. I also recommended pain management consultation for consideration of epidural injections. Patient will see me back after MRI is complete. No changes in work restrictions from my end at this time. Will reevaluate once MRI is done. Patient was in agreement. 02/16/24 1125 Date Nathanael Marrufo MD Cosigner Signature: Date (more content not included)... Normal [facility] KEANU SCREENINGon 04-09-2022 [facility] LUNG PERFUSION ONLYon NM LUNG PERFUSION ONLY * * *Final Report* * * DATE OF EXAM: Apr 29 2021 10:29AM AKN 0049 - NM LUNG PERFUSION ONLY / PROCEDURE REASON: Primary pulmonary hypertension (HCC) * * * * Physician Interpretation * * * * LUNG SCAN-Perfusion SPECT CLINICAL HISTORY: Assess for acute pulmonary embolism. Dyspnea. Pulmonary hypertension. TECHNIQUE: 5.3 mCi Tc 99m MAA IV. Planar images and SPECT CT of the chest are acquired. CT Radiation dose: Integrated Dose-length product (DLP) for this visit = 115 mGy*cm. CT Dose Reduction Employed: Automatic exposure control used (AED) RESULTS: Topogram review: Unremarkable, no acute findings. No retained foreign body. Perfusion Images: Heterogeneous tracer distribution in the bilateral lung. Nonsegmental perfusion defects: A few small defects in both lungs. Segmental perfusion defects: none. Incidental findings on CT (Note: the CT was performed mainly for anatomical correlation and suboptimal for diagnosis interpretation): normal. IMPRESSION: THE STUDY IS MOST CONSISTENT WITH A LOW PROBABILITY OF PULMONARY EMBOLISM. Framing Specialist: TABATHA Transcribe Date/Time: Apr 29 2021 10:49A Dictated by : GABBY PERDOMO MD This examination was interpreted and the report reviewed and electronically signed by: GABBY PERDOMO MD on Apr 29 2021 10:52AM EST [id number] Normal [facility] VitD, 1,25 Dihydroxyon 09-23 1,25 Dihydroxy VitD2 <4.0 Normal [facility] Comment on above: Performed By: #### 1 25VTD #### [facility] [address] [place], [place] [address] 1,25 Dihydroxy VitD3 33.2 pg/mL Normal [facility] Comment on above: Performed By: #### 1 25VTD #### [facility] [address] [place], [place] [address] Vit D,1,25 DiOH Normal 15.0-60.0 [facility] Comment on above: Result Comment: 33.2 This test was developed and its performance characteristics determined by [facility] [place] ( PLIA). It has not been cleared or approved by the FDA. [facility] is regulated under CLIA as qualified to perform high complexity testing. This test is used for clinical purposes. It should not be regarded as investigational or for research. Performed By: #### 1 25VTD #### [facility] [address] [place] [id number] Vital Signs Date Time Vital Sign Value Performing Clinician Faci hardik 12-27-2024 10:06-0400 Body height 167.64 cm Elisa JIANG Work Phone: [facility] 12-27-2024 10:06-0400 Body mass index (BMI) [Ratio] 48.4 kg/m2 Elisa SANTANAC Work Phone: [facility] 12-27-2024 10:06-0400 Body weight 136.07 kg Elisa Ring NP-C Work Phone: [facility] 01-08-2022 14:23-0400 Body height 168.9 cm Manny Lyn MD Work Phone: [facility] 01-08-2022 14:23-0400 Body weight 130.09 kg Manny Lyn MD Work Phone: [facility] 01-08-2022 14:23-0400 Diastolic blood pressure 74 mm[Hg] Manny Lyn MD Work Phone: [facility] 01-08-2022 14:23-0400 Systolic blood pressure 120 mm[Hg] Manny Lyn MD Work Phone: [facility] Encounters Encounter Date Encounter Type Care Provider Facility Start: 02-12-2025 ambulatory Marci Jenkins Facility:[facility] Start: 02-06-2025 ambulatory ELISA RING [facility] Start: 12-27-2024 End: 12-27-[address] Nimesh Wolfe MD -[facility] Start: 12-27-2024 End: 12-27-2024 ambulatory Elisa Ring TALENT ACQUISITION OPERATIONS MANAGER-C Work Phone: [facility] Work Phone: Start: 11-24-2024 End: 11-24-2024 Emergency department patient visit TOMER RILEY [facility] Start: 11-08-2024 End: 01-08-2025 Follow-up encounter Kelleybrook VitaleKincaidmassimo HARPER Work Phone: OB/Gynecology Start: 11-07-2024 ambulatory MANNY Fine ity:[facility] Start: 11-07-2024 End: 11-07-2024 Subsequent hospital visit by physician Screen Mammo [facility] Comment on above: Encounter for screen ing mammogram for malignant neoplasm of breast [Z12.31] Start: 10-18-2024 End: 11-05-2024 Telephone encounter Manny Lyn MD Work Phone: OB/Gynecology Comment on above: Orders Start: 08-22-2024 End: 08-22-2024 Emergency department patient visit MIRELA HALL [facility] Start: 07-13-2024 End: 07-13-2024 ambulatory ELISA [facility] Start: 07-13-2024 Encounter for genera l adult medical examination without abnormal findings ELISA [facility] Start: 03-26-2024 End: 03-26-2024 ambulatory kC SRIVASTAVA Facility:[facility] Start: 03-21-2024 End: 03-21-2024 ambulatory Ck SRIVASTAVA Facility:[facility] Start: 03-01-2024 End: 03-01-2024 ambulatory Elisa Ring NP Facility:[facility] Start: 02-25-2024 End: 02-25-2024 ambulatory Nathanael Marrufo Facility:[facility] Start: 02-16-2024 End: 02-16-2024 ambulatory Elisa Ring NP Facility:[facility] Start: 05-19-2022 End: 05-19-2022 Subsequent hospital visit by physician [facility] Work Phone: Radiology Comment on above: No Show Start: 04-16-2022 Telephone encounter Mary Zhang MD Work Phone: Mammography Comment on above: Mammogram Result Michael bowles Back Start: 04-12-2022 Orders Only Manny donato MD Work Phone: OB/Gynecology Comment on above: Abnormal mammogram ( Primary Dx) Start: 04-10-2022 ambulatory Manny donato MD Work Phone: OB/Gynecology Comment on above: Test Start: 04-09-2022 End: 04-09-2022 Subsequent hospital visit by physician Screen Mammo [facility] Comment on above: Encounter for screen ing mammogram for breast cancer [Z12.31] Start: 03-16-2022 ambulatory Manny donato MD Work Phone: OB/Gynecology Comment on above: My period Start: 01-08-2022 End: 01-08-2022 Patient encounter procedure Manny Lyn MD Work Phone: OB/Gynecology Comment on above: Encounter for gyneco logical examination (general) (routine) without abnormal findings; Encounter for screening mammogram for breast cancer; Encounter for IUD insertion Start: 01-08-2022 End: 01-08-2022 Patient encounter status Manny Lyn MD Work Phone: OB/Gynecology Start: 10-13-2017 End: 10-14-2017 Ambulatory [facility] Procedures Date Procedure Procedure Detail Performing Clinician Start: 11-24-2024 Urinalysis TOMER Mcnamara Comment on above: Result Comment: URIN ALYSIS Performed By: #### 2 [id number] #### [facility],[address] [place] [address] Start: 04-09-2022 End: 04-09-2022 Screening mammography bi 2-view breast inc cad Manny Lyn MD Work Phone: Start: 11-06-2020 Mammography Manny august MD Work Phone: Start: 01-03-2013 Lipid 1996 panel - S bernard or Plasma Us 1 Work Phone: Plan of Treatment Date Care Activity Detail Author Start: 11-07-2025 Screening for malign ant neoplasm of breast Mammogram Screening [facility] Start: 07-05-2025 End: 07-05-2025 Patient encounter procedure 07/05/2025 2:20 PM EST Office Visit OB/Gynecology [address] [place], [place] [address] Manny Lyn MD [address] [place] [address] annual OB/Gynecology Comment on above: annual Start: 03-04-2025 Influenza vaccination C [facility] Start: 02-15-2025 End: 02-15-2025 Patient encounter procedure 02/15/2025 9:00 AM EDT Office Visit OB/Gynecology [address] [place], [place] [id number] Manny Lyn MD [address] [place] [address] annual OB/Gynecology Comment on above: annual Start: 12-27-2024 X-ray of lumbosacral spine L/S Spine Min [address] [facility] Start: 12-27-2024 XR Spine Lumbar and Sacrum GE [address] [facility] Start: 11-06-2024 End: 11-06-2024 Patient encounter procedure 11/06/2024 12:50 PM EDT Appointment Mammogram [address] [place], [place] [id number] KEANU SCREENING W DANTE Mammogram Comment on above: KEANU SCREENING W DANTE Start: 03-04-2024 Covid-19 Vaccine ( season) Covid-19 Vaccine ( season) [facility] Start: 11-08-2023 Shingrix Vaccine (2 of 2) Shingrix Vaccine (2 of 2) [facility] Start: 08-01-2023 HPV TESTING HPV TESTING [facility] Start: 08-01-2023 PAP TESTING PAP TESTING [facility] Start: 08-01-2023 Screening for malign ant neoplasm of cervix Cervical Cancer Screening [facility] Start: 04-09-2023 Mammography [facility] Start: 04-09-2023 Screening for malign ant neoplasm of breast Mammogram Screening [facility] Start: 03-04-2023 Covid-19 Vaccine ( season) Covid-19 Vaccine () [facility] Start: 03-04-2023 Influenza vaccination Influenza Vacc ine (#1) [facility] Start: 03-04-2022 Influenza vaccination INFLUENZA (#1) [facility] Start: 11-06-2021 Mammography MAMMOGRAM [facility] Start: 2021 Pneumococcal Vaccine : 50+ (1 of 1 - PCV) Pneumococcal Vaccine: 50+ (1 of 1 - PCV) [facility] Start: 2021 SHINGRIX VACCINE (1 of 2) SHINGRIX VACCINE (1 of 2) [facility] Start: 05-17-2021 COVID-19 VACCINE (3 - Booster for Moderna series) COVID-19 VACCINE (3 - Booster for Moderna series) [facility] Start: 02-09-2021 COVID-19 VACCINE (3 - Booster for Moderna series) COVID-19 VACCINE (3 - Booster for Moderna series) [facility] Start: 01-03-2018 Lipid 1996 panel - S bernard or Plasma Lipid Screening [facility] Start: 01-03-2018 Lipid panel Lipid Screening [facility] Start: 01-03-2018 LIPID SCREEN LIPID SCREEN [facility] Start: 2016 COLOGUARD (FIT-DNA) COLOGUARD (FIT-D NA) [facility] Start: 2016 Colonoscopy COLONOSCOPY [facility] Start: 2016 COLORECTAL CANCER SCREENING COLORECTAL CANCER SCREENING [facility] Start: [address] COLONOGRAPHY [facility] Start: 2016 DIABETES SCREEN [facility] Start: 2016 Diabetes Screening Diabetes Screenin g [facility] Start: 2016 FECAL OCCULT BLOOD FECAL OCCULT BLOO D [facility] Start: 2016 Screening for malign ant neoplasm of colon [facility] Start: [address] Start: 1990 Hepatitis B Vaccine (1 of 3 - 19+ 3-dose series) Hepatitis B Vaccine (1 of 3 - 19+ 3-dose series) [facility] Start: 1990 Urine microalbumin profile [facility] Start: 1989 Anxiety Screening Anxiety Screening [facility] Start: 1989 HEPATITIS C SCREENING HEPATITIS C [facility] Start: 1989 Hepatitis C screening Hepatitis C [facility] Start: 1971 HEPATITIS B (1 of 3 - 3-dose series) HEPATITIS B (1 of 3 - 3-dose series) [facility] Start: 1971 Hepatitis B Vaccine (1 of 3 - 3-dose series) Hepatitis B Vaccine (1 of 3 - 3-dose series) [facility] End: 11-17-2025 DBT Breast - bilateral screening KEANU SCREENING W DANTE Radiology Routine Encounter for screening mammogram for malignant neoplasm of breast 1 Occurrences starting 10/18/2024 until 11/17/2025 [facility] Work Phone: Comment on above: 1 Occurrences starti ng 10/18/2024 until 11/17/2025 DBT Breast - bilater al screening KEANU SCREENING W DANTE Radiology Routine Encounter for screening mammogram for malignant neoplasm of breast 11/07/2024 11:08 AM EDT [facility] Work Phone: End: 05-12-2023 Diagnostic mammography computer-aided detcj uni KEANU DIAGNOSTIC LT Radiology Routine Abnormal mammogram 1 Occurrences starting 04/12/2022 until 05/12/2023 [facility] Work Phone: Comment on above: 1 Occurrences starti ng 04/12/2022 until 05/12/2023 End: 02-07-2023 Screening mammography bi 2-view breast inc cad KEANU SCREENING Radiology Routine Encounter for screening mammogram for breast cancer 1 Occurrences starting 01/08/2022 until 02/07/2023 [facility] Work Phone: Comment on above: 1 Occurrences starti ng 01/08/2022 until 02/07/2023 End: 05-12-2023 Us breast uni real time with image limited US BREAST LTD LT Radiology Routine Abnormal mammogram 1 Occurrences starting 04/12/2022 until 05/12/2023 [facility] Work Phone: Comment on above: 1 Occurrences starti ng 04/12/2022 until 05/12/2023 [facility] Immunizations Immunization Date Immunization Notes Care Provider Ted hay 05-09-2024 influenza virus vacc ine, unspecified formulation Kelley Laci CREDIT RISK MANAGER.CONSTRUCTION PERSON Work Phone: [facility] 06-22-2021 influenza virus vacc ine, unspecified formulation Us 1 Work Phone: [facility] Payers Date Payer Category Payer Self-pay 2024 Unknown [id number] 2010 [employer] BLUE CARD PPO OOS [id number] 2010 Unknown [employer] BLUE CARD PPO OOS [id number] 2010-Present [phone] [place] [address] PPO [id number] 2010 Unknown [employer] BLUE CARD PPO OOS [id number] 2010-Present [phone] [place] [address] PPO [id number] 2010 Unknown [id number] 1970 Unknown [id number]. 651 1971 Unknown [id number] [id number]. 651 1971 Unknown [id number] [id number]. 651 1971 Unknown [id number]. 651 Unknown [facility] [id number] Unknown [id number] Unknown [id number]. 462 Unknown [id number] [id number]. 462 Unknown [id number] [id number]. 462 Unknown [id number] [id number]. 462 Unknown [id number] [id number]. 462 Unknown [id number] 2.16.840.1.809125.3.579.2. 462 Unknown [id number] [id number]. 462 Unknown [id number]. 462 Unknown [id number] 462 Social History Date Type Detail Facility Start: 12-14-2010 End: 03-22-2024 Tobacco smoking status NHIS Never smoked tobacco [facility] Start: 01-08-2022 End: 03-31-2022 Alcohol intake Current non-drinker of alcohol (finding) [facility] Start: 01-17-2012 History SDOH Alcohol Comment RARE [facility] Start: 1970 Sex Assigned At Female C [facility] Start: 12-05-2021 End: 05-19-2022 Exposure to SARS-CoV-2 (event) Not sure [facility] Work Phone: Start: 12-14-2010 Tobacco use and exposure Smokeless tobacco non-user [facility] Work Phone: Start: 03-31-2022 End: 11-06-2024 History of Social function [facility] Start: 03-31-2022 End: 11-06-2024 Tobacco use panel [facility] National Score (1-100), lower number is lower risk 74 [facility] Start: 05-10-2020 Gender identity Identifies as female gender (finding) [facility] Start: 12-15-2013 Alcohol Alcohol [facility] Start: 12-15-2013 Drugs Drugs [facility] Start: 12-15-2013 Lives Lives [facility] Start: 02-08-2020 Tobacco Use Tobacco Use [facility] Medical Equipment Procedure Code Equipment Code Equipment Origin al Text Equipment Identifier Dates INTERSTIM LEAD FDA Start: 02-07-2020 INTERSTIM LEAD KIT FDA Start: 02-07-2020 GENERATOR,BLADDE R STIM FDA Start: 02-21-2020 INTERSTIM LEAD FDA Start: 02-07-2020 INTERSTIM LEAD KIT FDA Start: 02-07-2020 GENERATOR,BLADDE R STIM FDA Start: 02-21-2020 Functional Status Date Assessment Result Facility 07-08-2014 Are you deaf, or do you have serious difficulty hearing No 07/08/2014 11:57 AM Jennie Franklin, JEANNE No [facility] 07-08-2014 Are you blind, or do you have serious difficulty seeing, even when wearing glasses No 07/08/2014 11:57 AM Jennie Franklin, JEANNE No [facility] 07-08-2014 Do you have serious difficulty walking or climbing stairs No 07/08/2014 11:57 AM Jennie Franklin, JEANNE No [facility] 07-08-2014 Do you have difficul ty dressing or bathing No 07/08/2014 11:57 AM Jennie Franklin, JEANNE No [facility] 07-08-2014 Because of a physica l, mental, or emotional condition, do you have difficulty doing errands alone such as visiting a physician's office or shopping No 07/08/2014 11:57 AM Jennie Franklin, JEANNE No [facility] Mental Status Date Assessment Result Facility 07-08-2014 Because of a physica l, mental, or emotional condition, do you have serious difficulty concentrating, remembering, or making decisions No 07/08/2014 11:57 AM Jennie Franklin RN No [facility] Clinical Notes 01-19-2007 to 11-07-2024 James Grajeda Mammo Tech - 11/07/2024 10:50 AM EDTTelephone Encounter - Carmelita Ornelas - 10/18/2024 11:33 AM EDTTelephone Encounter - Carmelita Ornelas - 10/18/2024 11:33 AM EDT Note Date & Type Note Facility 11-07-2024 History of Presen t illness Narrative Radiology Service Progress Note PATIENT NAME: La Stack DATE OF SERVICE: November 07, 2024 TIME: 11:11 AM PATIENT IDENTITY VERIFICATION COMPLETED USING TWO (2) IDENTIFIERS: Name and Date of confirmed by patient verbally. FALL SCREENING: Has the patient had 2 falls in the last year or 1 fall with injury or currently using an Ambulatory Assistive Device (Walker, Cane, Wheelchair, Crutches, etc.)? No PATIENT GENDER DATA: Assigned female at . status: : No status: NO. PATIENT RELEVANT IMPLANT DATA REVIEWED: Not Applicable PATIENT PRESENTS WITH AN IMPLANTABLE OR ATTACHED FURNACE BUILDER: No RADIOLOGY DEPARTMENT: Mammography PERIPHERAL IV DATA: Not applicable SIGNED BY: Jocelyn Ramirez November 07, 2024 11:11 AM documented in this encounter [facility] 11-07-2024 Note HNO ID: [id number] Author: JAMES GRAJEDA Mammo Tech Service: ? Author Type: Sheet Metal Assembler Type: Progress Notes Filed: 11/07/2024 11:12 Note Text: Radiology Service Progress Note PATIENT NAME: La Stack DATE OF SERVICE: November 07, 2024 TIME: 11:11 AM PATIENT IDENTITY VERIFICATION COMPLETED USING TWO (2) IDENTIFIERS: Name and Date of confirmed by patient verbally. FALL SCREENING: Has the patient had 2 falls in the last year or 1 fall with injury or currently using an Ambulatory Assistive Device (Walker, Cane, Wheelchair, Crutches, etc.)? No PATIENT GENDER DATA: Assigned female at . status: : No status: NO. PATIENT RELEVANT IMPLANT DATA REVIEWED: Not Applicable PATIENT PRESENTS WITH AN IMPLANTABLE OR ATTACHED FURNACE BUILDER: No RADIOLOGY DEPARTMENT: Mammography PERIPHERAL IV DATA: Not applicable SIGNED BY: James Grajeda [employer] November 07, 2024 11:11 AM [facility] 10-18-2024 Telephone encounter Note Please place Dante mammography order [facility] 10-18-[address] Dante mammography order documented in this encounter [facility] 08-23-2024 Note Discharge Instructio ns Discharge Summary [facility] [address] [place] [address]. [place] [address] [id number] 08/22/2024 Patient: LA STACK Sex: Female : 1970 Age: 54y Thank you for visiting [facility]. You have been evaluated today by Mirela Reed D.O. for the following condition(s): Principal Diagnosis Acute viral (suspected) rhinitis.No airway obstruction. INSTRUCTIONS Take Tylenol (Acetaminophen) or Motrin (Ibuprofen) as needed for fever control. Take medication according to label instructions. No restrictions to activity. Drink plenty of fluids. OTC Medications: Take ibuprofen (such as Advil, Motrin or Nuprin), naproxen (such as Aleve, Naprosyn or Anaprox) and Robitussin DM according to label instructions. Available over the counter. Follow-up: Follow up with your healthcare provider in five days even if well. Call for an appointment. Patient Signature Facility Associate Programmer Analyst 1 of 3 Discharge Instructions Date/Time General Instructions with ExitWriter [address] [address] [phone] 08/22/2024 Patient: LA STACK Sex: Female : 1970 Age: 54y Thank you for visiting [facility]. You have been evaluated today by Mirela Reed D.O. for the following condition(s): Principal Diagnosis Acute viral (suspected) rhinitis.No airway obstruction. INSTRUCTIONS Take Tylenol (Acetaminophen) or Motrin (Ibuprofen) as needed for fever control. Take medication according to label instructions. No restrictions to activity. Drink plenty of fluids. OTC Medications: Take ibuprofen (such as Advil, Motrin or Nuprin), naproxen (such as Aleve, Naprosyn or Anaprox) and Robitussin DM according to label instructions. Available over the counter. Follow-up: Follow up with your healthcare provider in five days even if well. Call for an appointment. Activities Restrictions [address] [address] [phone] 08/22/2024 Patient: LA STACK Sex: Female : 1970 Age: 54y You have been given the following instructions regarding activity, work, and/or school. 2 of 3 Discharge Instructions No restrictions to activity. Facility Associate Programmer Analyst 3 of 3 [facility] 04-12-2022 Miscellaneous Notes orders in. Manny Lyn MD Patient has additional imaging needed. Please file order and then we will have patient get scheduled for diagnostic mammogram documented in this encounter [facility] 03-17-2022 Miscellaneous Notes Left message for patient to call office. Planned to offer patient an appointment with CP this afternoon. She has several 30 minute scheduled appointment times that we could possibly squeeze patient in around that time. Shadia Duff RN documented in this encounter [facility] 01-08-2022 History of Presen t illness Narrative La is a 51 year old who presents for an annual gynecologic exam with some c/o pain in mons area. Not worse w/ urination. Has had interstim a couple of years and wonders if it is related to that. She doesn't think it helps bladder, thinks medication worked better. Menses: llight spotting occas. only w/ mirena. Contraception: IUD HPV vaccine: No Last Pap: 08/04/2018 normal HPV: 08/03/2018 negative History of abnormal pap: No Last mammogram: 2020normal Sexually active: No OB History T2 L2 SAB0 IAB0 Ectopic0 Multiple0 Live Births1 [place] History LMP: 04/10/2015, IUD Age at Menarche: Age at First : Age at Menopause: [place] History Comments: Sexual Activity: Not Currently; Male Contraception: I.U.D. PAST MEDICAL HISTORY Diagnosis Date Abnormal glandular Papanicolaou smear of cervix Abn. Pap smear (cervix) Allergic rhinitis, cause unspecified Allergic rhinitis Dysthymic disorder Depression (non-psychotic), PMH - PAST MEDICAL HISTORY OF LOWER BACK PAIN PAST SURGICAL HISTORY Procedure Laterality Date DELIVERY ONLY 03/14/2005 , low cervical DELIVERY ONLY 09/14/2007 , low cervical CHOLECYSTECTOMY Cholecystectomy COLPOSCOPY CERVIX UPPER/ADJACENT VAGINA 09/12/2006 Colposcopy COLPOSCOPY CERVIX UPPER/ADJACENT VAGINA 12/14/2007 Colposcopy CONIZATION CERVIX W/WO D&C RPR ELTRD EXC 02/06/2008 LEEP for TIAN III PAST SURGICAL HISTORY OF bladder stimulator SHOULDER SURGERY HX Right 09/2016 FAMILY HISTORY Problem Relation Age of Onset Diabetes Father Seizures Sister CHILDHOOD SEIZURES Diabetes Brother other (SATURNINO GEHRIGS) Maternal Grandmother Colon Cancer Maternal Grandfather Breast Cancer Maternal Aunt SOCIAL HISTORY Social History Tobacco Use Smoking status: Never Smoker Smokeless tobacco: Never Used Vaping Use Vaping Use: Never used Substance Use Topics Alcohol use: No Comment: RARE Drug use: No REVIEW OF SYSTEMS Abdomen: No abdominal pain, nausea, vomiting, diarrhea, or constipation. No bloating, early satiety, indigestion, or increased flatulence. Bladder: some frequency. Breast: No breast lumps, nipple d/c, overlying skin changes, redness or skin retraction. Allergies and current medication updated:Yes EXAM: BP 120/74 Ht 5' 6.5 (1.69m) Wt 286 lb 12.8 oz (130.1kg) LMP 04/10/2015 BMI 45.60 kg/(m^2). GENERAL: pleasant, female in no apparent distress HEENT: Normocephalic, atraumatic, mucus membranes moist and no lesions NECK: Supple, full range of motion, no adenopathy and thyroid normal DERMATOLOGY: Normal, without lesions, non-icteric and non-hirsute BREAST: soft, non-tender, symmetric, no dominant mass, normal nipple-areolar complex, no lymphadenopathy and no nipple discharge CHEST: Normal inspiratory effort ABDOMEN: soft, non-tender, no masses and pannus moderate PELVIC: external genitalia normal, normal Bartholin's glands, urethra, Tracyton's glands, no vulvar lesions, no cervical lesions, good vaginal support, physiologic discharge present, normal appearing perineal body and perianal region. Points to labia where pain is. THere is no palpable lesion, no erythema, no focal abnormalitiy BIMANUAL: uterus normal size, shape and consistency, no adnexal masses and non-tender, IUD strings noted at cervical os. RECTOVAGINAL: deferred. NEURO: alert and oriented x3,exam grossly non-focal EXTREMITIES: normal ASSESSMENT/PLAN: 1) Health maintenance: Pap/HPV up to date. Mammogram ordered. 2) Contraception: IUD. Contraceptive options reviewed and information provided. 3) STD screening: Declined STD check. 4) Follow up one year or sooner as needed vulvar pain, non specific. trial neurontin compounded cream Manny Lyn MD documented in this encounter [facility] 04-29-2021 Note HNO ID: [id number] Author: Ezekiel Dotson RT(R) Service: Nuclear Medicine Author Type: Technologist Type: Progress Notes Filed: 04/29/2021 10:33 AM Note Text: RADIOLOGY SERVICE PROGRESS NOTE SERVICE DATE: 04/29/2021 SERVICE TIME: 10:31 AM PATIENT IDENTITY VERIFICATION COMPLETED USING TWO (2) STANDARD IDENTIFIERS: Name and Date of confirmed by patient verbally FALL SCREENING: Has the patient had 2 falls in the last year or 1 fall with injury or currently using an Ambulatory Assistive Device (Walker, Cane, Wheelchair, Crutches, etc.)? No PATIENT GENDER DATA: .female : No ALLERGIES: Reviewed and unchanged MEDICATIONS REVIEWED: No PATIENT RELEVANT IMPLANT DATA REVIEWED: Not Applicable CREATININE: Creatinine Date Value Ref Range Status 01/03/2013 0.66 (L) 0.70 - 1.40 mg/dL Final 09/11/2012 0.68 (L) 0.70 - 1.40 mg/dL Final 03/01/2005 0.5 (A) 0.7 - 1.4 mg/dL Final eGFR-All Other Races Date Value Ref Range Status 01/03/2013 >60 . Final Comment: eGFR (Estimated GFR) Units of measure: mL/min/1.73 meters squared eGFR is derived from the reexpressed MDRD Study equation using the following parameters: serum creatinine, age, gender and race. The creatinine assay has been calibrated to be traceable to IDMS. An eGFR <60 mL/min/1.73m2 for >3 months is consistent with chronic kidney disease. Refer to KDOQI guidelines for clinical interpretation. eGFR- Date Value Ref Range Status 01/03/2013 >60 Final P.O.C.T. RESULTS: N/A April 29, [address] PERFORMED: No IV SITE: Ambulatory: NM only - direct IV injection in the Left antecubital site POST EXAM PIV STATUS: Not applicable PROCEDURE TYPE: NM INJECT: LUNG SCAN PERFUSION ONLY. 5.3 mCi Tc99m MAA. No other medications given.. ADMINISTRATION TIME: 950 PATIENT DISCHARGED TO: Ambulatory patient, left NM department area. A Diagnostic radioactive procedure has taken place, with no further precautions necessary other than routine body substance precautions. More information regarding radiation safety can be found using this link: [email or web address] SIGNATURE: RT Cecilio(R) PATIENT NAME: La Stack DATE: April 29, 2021 TIME: 10:31 AM PAGER/CONTACT #: [facility] 01-19-2007 History of Past i llness Narrative Problem Noted Date Resolved Date Supervision of other normal 01/19/2007 09/29/2007 documented as of this encounter (statuses as of 01/08/2022) [facility] History of Past illness Narrative* Problem Noted Date Resolved Date Supervision of other normal 01/19/2007 09/29/2007 documented as of this encounter (statuses as of 03/17/2022) [facility] History of Past illness Narrative* Problem Noted Date Resolved Date Supervision of other normal 01/19/2007 09/29/2007 documented as of this encounter (statuses as of 04/10/2022) [facility] History of Past illness Narrative* Problem Noted Date Resolved Date Supervision of other normal 01/19/2007 09/29/2007 documented as of this encounter (statuses as of 04/12/2022) [facility] History of Past illness Narrative* Problem Noted Date Resolved Date Supervision of other normal 01/19/2007 09/29/2007 documented as of this encounter (statuses as of 04/12/2022) [address]19-2007 History of Past illness Narrative* Problem Noted Date Resolved Date Supervision of other normal 01/19/2007 09/29/2007 documented as of this encounter (statuses as of 04/16/2022) [address]19-2007 History of Past illness Narrative* Problem Noted Date Diagnosed Date Resolved Date Supervision of other normal 01/19/2007 09/29/2007 documented as of this encounter (statuses as of 05/08/2023) [facility] Diagnosis Encounter for gynecological examination (general) (routine) without abnormal findings Encounter for screening mammogram for breast cancer Encounter for IUD insertion Encounter for insertion of intrauterine contraceptive device [facility] Encounter for screening mammogram for breast cancer [facility] Diagnosis Abnormal mammogram- Primary Abnormal mammogram, unspecified [facility] Diagnosis Abnormal mammogram Abnormal mammogram, unspecified documented in this encounter [facility] note* Diagnosis Encounter for screening mammogram for malignant neoplasm of breast- Primary Other screening mammogram documented in this encounter [facility] note* Diagnosis Encounter for screening mammogram for malignant neoplasm of breast Other screening mammogram documented in this encounter [facility] noteNo assessment information availableNortheastern Center Services Work Phone: Reason for referral (narrative)* Diagnostic Procedure Only (Routine) - Authorized Specialty Diagnoses / Procedures Referred By Adeline baires Referred To Contact [facility] Diagnoses Encounter for screening mammogram for breast cancer Procedures KEANU SCREENING SCREENING MAMMOGRAPHY BI 2-VIEW BREAST INC Manny Messina MD [address] [place] [address] [facility] [address] [id number] Referral ID Status Reason Start Date Expiration Date Visits Requested Visits Authorized [id number] Authorized Auto-Generat ed Referral 01/08/2022 02/07/2023 1 1 [facility] for referral (narrative)* Diagnostic Procedure Only (Routine) - Closed Specialty Diagnoses / Procedures Referred By Adeline baires Referred To Contact [facility] Diagnoses Encounter for screening mammogram for breast cancer Procedures KEANU SCREENING SCREENING MAMMOGRAPHY BI 2-VIEW BREAST INC Manny Messina MD [address] [place] [address] [facility] [address] [place] [address] Referral ID Status Reason Start Date Expiration Date V isits Requested Visits Authorized [id number] Closed Auto-Generate d Referral 01/08/2022 02/07/2023 1 1 [facility] for referral (narrative)* Diagnostic Procedure Only (Routine) - Pending Review Specialty Diagnoses / Procedures Referred By Adeline baires Referred To Contact [facility] Diagnoses Abnormal mammogram Procedures US BREAST LTD LT US BREAST UNI REAL TIME WITH IMAGE LIMITED Manny Lyn MD [address] [place] [address] [facility] [address] [place] [address] Referral ID Status Reason Start Date Expiration Date Visits Requested Visits Authorized [id number] Pending Review Auto-Generat ed Referral 2 05/12/2023 1 1 * Diagnostic Procedure Only (Routine) - Pending Review Specialty Diagnoses / Procedures Referred By Adeline baires Referred To Contact [facility] Diagnoses Abnormal mammogram Procedures KEANU DIAGNOSTIC LT DIAGNOSTIC MAMMOGRAPHY COMPUTER-AIDED DETCJ UNI Manny Lyn MD [address] [place] [address] [facility] [address] [place] [address] Referral ID Status Reason Start Date Expiration Date Visits Requested Visits Authorized [id number] Pending Review Auto-Generat ed Referral 2 05/12/2023 1 1 [facility])No reason for referral information availableBrundidge Covocative Services Work Phone: Reason for visit Narrative* Diagnostic Procedure Only (Routine) - Closed Specialty Diagnoses / Procedures Referred By Adeline baires Referred To Contact [facility] Diagnoses Encounter for screening mammogram for breast cancer Procedures KEANU SCREENING SCREENING MAMMOGRAPHY BI 2-VIEW BREAST INC CAD Manny Lyn MD [address] [place] [address] [facility] [address] [place] [address] Referral ID Status Reason Start Date Expiration Date V isits Requested Visits Authorized [id number] Closed Auto-Generate d Referral 01/08/2022 02/07/2023 1 1 [facility]* Diagnostic Procedure Only (Routine) - Closed Specialty Diagnoses / Procedures Referred By Adeline baires Referred To Contact [facility] Diagnoses Abnormal mammogram Procedures US BREAST LTD LT US BREAST UNI REAL TIME WITH IMAGE LIMITED Manny Lyn MD [address] [place] [address] [facility] [address] [place] [address] Referral ID Status Reason Start Date Expiration Date V isits Requested Visits Authorized [id number] Closed Auto-Generate d Referral 05/14/2022 07/03/2022 1 1 [facility]* Diagnostic Procedure Only (Routine) - Closed Specialty Diagnoses / Procedures Referred By Adeline baires Referred To Contact [facility] Diagnoses Encounter for screening mammogram for malignant neoplasm of breast Procedures KEANU SCREENING W DANTE SCREENING DIGITAL BREAST TOMOSYNTHESIS BI SCREENING MAMMOGRAPHY BI 2-VIEW BREAST INC CAD Manny Lyn MD [address] [place] [address] Phone: tel: fax: [facility] [address] [place] [address] Referral ID Status Reason Start Date Expiration Date V isits Requested Visits Authorized [id number] Closed Auto-Generate d Referral 10/18/2024 11/17/2025 1 1 [facility] Summary Purpose Family History No Family History Records Found Relationship Condition Age at Onset Recorded Date/T anthony Unknown Family History?- Unknown December 15, 2013 2:03am Advance Directives No Advanced Directives Records Found Advance Directive Response Recorded Date/ Time Advance Directives No March 3:07pm Chief Complaint and Reason for Visit Chief Complaint Admit Date LUMBAR SPINE December 27, 2024 10:0 5am Room 1 December 27, 2024 10:1 4am Additional Source Comments INFORMATION SOURCE (unrecogn ized section and content) DATE CREATED AUTHOR 12/22/2017 [facility] DATE CREATED AUTHOR AUTHOR'S ORGANIZ ATION 09/24/2020 [facility] DATE CREATED AUTHOR AUTHOR'S ORGANIZ ATION 04/30/2021 [facility] DATE CREATED AUTHOR AUTHOR'S ORGANIZ ATION 11/08/2024 [facility] DATE CREATED AUTHOR AUTHOR'S ORGANIZ ATION 02/09/2025 [facility] DATE CREATED AUTHOR AUTHOR'S COLEEN ATION 02/12/2025 [facility] Source Comments (unrecognize d section and content) In the event this informatio n is protected by the Federal Confidentiality of Alcohol and Drug Abuse Patient Records regulations: The Federal rules restrict any use of the information to criminally investigate or prosecute any alcohol or drug abuse patient.[facility] the event this information is protected by the Federal Confidentiality of Alcohol and Drug Abuse Patient Records regulations: The Federal rules restrict any use of the information to criminally investigate or prosecute any alcohol or drug abuse patient.[facility] the event this information is protected by the Federal Confidentiality of Alcohol and Drug Abuse Patient Records regulations: The Federal rules restrict any use of the information to criminally investigate or prosecute any alcohol or drug abuse patient.[facility] the event this information is protected by the Federal Confidentiality of Alcohol and Drug Abuse Patient Records regulations: The Federal rules restrict any use of the information to criminally investigate or prosecute any alcohol or drug abuse patient.[facility] the event this information is protected by the Federal Confidentiality of Alcohol and Drug Abuse Patient Records regulations: The Federal rules restrict any use of the information to criminally investigate or prosecute any alcohol or drug abuse patient.[facility] the event this information is protected by the Federal Confidentiality of Alcohol and Drug Abuse Patient Records regulations: The Federal rules restrict any use of the information to criminally investigate or prosecute any alcohol or drug abuse patient.[facility] the event this information is protected by the Federal Confidentiality of Alcohol and Drug Abuse Patient Records regulations: The Federal rules restrict any use of the information to criminally investigate or prosecute any alcohol or drug abuse patient.[facility] the event this information is protected by the Federal Confidentiality of Alcohol and Drug Abuse Patient Records regulations: The Federal rules restrict any use of the information to criminally investigate or prosecute any alcohol or drug abuse patient.[facility] the event this information is protected by the Federal Confidentiality of Alcohol and Drug Abuse Patient Records regulations: The Federal rules restrict any use of the information to criminally investigate or prosecute any alcohol or drug abuse patient.[facility] the event this information is protected by the Federal Confidentiality of Alcohol and Drug Abuse Patient Records regulations: The Federal rules restrict any use of the information to criminally investigate or prosecute any alcohol or drug abuse patient.[facility] Reason for Visit (unrecogniz ed section and content) Reason Comments Well Woman Reason Onset Date Comments Radiology Mammogram 04/12/2022 at [facility] Reason Comments Mammogram Result Call Back Reason Comments Orders Care Teams (unrecognized sec tion and content) Mobile Equipment Servicer Relationship Specialty Start Date End Date Elisa Ring [address] [place] [address] PCP - General Family Practice 12/04/14 Mobile Equipment Servicer Relationship Specialty Start Date End Date Elisa Ring [address] [place] [address] PCP - General Family Practice 12/04/14 Mobile Equipment Servicer Relationship Specialty Start Date End Date Elisa Ring [address] [place] [address] PCP - General Family Medicine 12/04/14 Mobile Equipment Servicer Relationship Specialty Start Date End Date Elisa Ring [address] [place] [address] (Fax) PCP - General Family Medicine 12/04/14 Mobile Equipment Servicer Relationship Specialty Start Date End Date Elisa Ring [address] [place] [address] PCP - General Family Medicine 12/04/14 Mobile Equipment Servicer Relationship Specialty Start Date End Date Elisa Ring [address] [place] [address] PCP - General Family Medicine 12/04/14 Mobile Equipment Servicer Relationship Specialty Start Date End Date Elisa Ring CNP [address] [place] [address] PCP - General Family Medicine 12/04/14 Mobile Equipment Servicer Relationship Specialty Start Date End Date Elisa Ring CNP [address] [place] [address] PCP - General Family Medicine 12/04/14 Mobile Equipment Servicer Relationship Specialty Start Date End Date Elisa Ring CNP [address] [place] [address] PCP - General Family Medicine 12/04/14 Team Status: Active Member Role Status Dates WALKER RING Family Provider Active Elisa Ring TALENT ACQUISITION OPERATIONS MANAGER, TALENT ACQUISITION OPERATIONS MANAGER-C Primary Care Provider Active Team Status: Active Member Role Status Dates Elisa Rign TALENT ACQUISITION OPERATIONS MANAGER, TALENT ACQUISITION OPERATIONS MANAGER-C Primary Care Provider Active Start: December 27, 2024 Elisa Ring NP, TALENT ACQUISITION OPERATIONS MANAGER-C Referring Provider Active S tart: December 27, 2024 ATIF Schwarz Attending Provider Active Star t: December 27, 2024 Team Status: Inactive Member Role Status Dates Elisa Ring NP, TALENT ACQUISITION OPERATIONS MANAGER-C Primary Care Provider Active Start: December 27, 2024 End: December 27, 2024 Dr. Nimesh Wolfe MD Attending Provider Active S tart: December 27, 2024 End: December 27, 2024 Team Status: Inactive Member Role Status Dates Elisa Ring NP, TALENT ACQUISITION OPERATIONS MANAGER-C Primary Care Provider Active Start: December 27, 2024 End: December 27, 2024 Elisa Ring NP, TALENT ACQUISITION OPERATIONS MANAGER-C Referring Provider Active S tart: December 27, 2024 End: December 27, 2024 ATIF Schwarz Attending Provider Active Star t: December 27, 2024 End: December 27, 2024 Mobile Equipment Servicer Relationship Specialty Start Date End Date Elisa Ring CNP [address] [place] [address] PCP - General Family Medicine 12/04/14 Goals (unrecognized section and content) Goals may be documented in a n alternate sectionGoals may be documented in an alternate section FOR RECORDS PERTAINING TO PATIENTS WHO ARE OR HAVE BEEN ENROLLED IN A CHEMICAL DEPENDENCY/SUBSTANCEABUSE PROGRAM, SOME INFORMATION MAY BE OMITTED. This clinical summary was aggregated from multiple sources. Caution should be exercised in using it in the provision of clinical care. This summary normalizes information from multiple sources, and as a consequence, information in this document may materially change the coding, format and clinical context of patient data. In addition, data may be omitted in some cases. CLINICAL DECISIONS SHOULD BE BASED ON THE PRIMARY CLINICAL RECORDS. [employer] [facility]. provides no warranty or guarantee of the accuracy or completeness of information in this document.
== END | disposition home or self-care (01) ==
LOC: MRI 16:43
PROVIDERS: PCP Nurse Practitioner Family; Referring Provider Student in an Organized Health Care Education/Training Program; Visit Provider Student in an Organized Health Care Education/Training Program
DX: M54.16 Radiculopathy, lumbar region (principal); M41.56 Other secondary scoliosis, lumbar region
CPT/HCPCS: 72148